=== PATIENT | male | born 1960 | race Asian ===

== ENCOUNTER 2019-07-19 09:11 | Inpatient (IN) | payer OTHER ==
[~2019-07-19] VITALS: Ht 167.6 cm; Wt 65.4 kg
[2019-07-19] VITALS (7 sets, daily range): BP systolic 122–142; BP diastolic 59–79
[2019-07-19] MEDS ORDERED: OMEP20 PO (09:27)
[2019-07-19] MEDS ORDERED: COLC0.6T76 PO (09:27)
[2019-07-19] MEDS ORDERED: LevETIRAcetam 1,000 MG in DEXTROSE 5%-WATER 100 ML IV ONE (09:30)
[2019-07-19] MEDS ORDERED: SODIUM CHLORIDE 0.9% 1,000 ML IV ONE (09:30)
[2019-07-19 09:44] LABS: BASOPHILS % (AUTO) 0.7 % (0.0-2.0); EOSINOPHILS % (AUTO) 0.9 % (1.0-6.0); HEMATOCRIT 42.4 % (41-53); HEMOGLOBIN 13.3 g/dL (13.5-17.5); LYMPHOCYTES # (AUTO) 2.5 K/uL (1.0-4.8); LYMPHOCYTES % (AUTO) 55.3 % (22.0-44.0); MEAN CORPUSCULAR HEMOGLOBIN 26.9 pg (26.0-34.0); MEAN CORPUSCULAR HGB CONC 31.4 G/dL (31.0-37.0); MEAN CORPUSCULAR VOLUME 86 fL (80-100); MONOCYTES # (AUTO) 0.3 K/uL (0.1-1.0); MONOCYTES % (AUTO) 6.9 % (2.0-9.0); NEUTROPHILS # (AUTO) 1.6 K/uL (1.8-7.7); NEUTROPHILS % (AUTO) 36.2 % (40.0-70.0); PLATELET COUNT (AUTO) 234 K/uL (150-450); RED BLOOD CELL COUNT(AUTO) 4.96 MIL/uL (4.50-5.90); RED CELL DISTRIBUTION WIDTH 14.8 % (11.5-14.5)
[2019-07-19] MEDS: NiCARDipine HCL 25 MG in DEXTROSE 5%-WATER 240 ML IV PRN ×2 (09:50→18:32)
[2019-07-19 09:52] LABS: ANION GAP 12 mmol/L (8-16); CALCIUM, TOTAL 8.8 mg/dL (8.8-10.5); CARBON DIOXIDE 25 mmol/L (22-29); CHLORIDE 102 mmol/L (98-107); GLOMERULAR FILTR. RATE CALC > 60 mL/min (>60); GLUCOSE,RANDOM 140 mg/dL (70-110); POTASSIUM 3.5 mmol/L (3.5-5.1); SODIUM SERUM 139 mmol/L (136-145); UREA NITROGEN, BLOOD 13 mg/dL (7-18)
[2019-07-19 09:59] LABS: ALANINE AMINOTRANSFERASE 24 U/L (12-78); ALBUMIN 3.9 g/dL (3.4-5.0); ALKALINE PHOSPHATASE 52 U/L (46-116); ASPARTATE AMINOTRANSFERASE 32 U/L (15-37); BILIRUBIN,TOTAL 0.6 mg/dL (0.1-1.0); TOTAL PROTEIN, SERUM 7.2 g/dL (6.4-8.2)
[2019-07-19 10:12] LABS: APPEARANCE,URINE CLEAR (CLEAR); BILIRUBIN,URINE NEGATIVE (NEGATIVE); GLUCOSE, URINE (UA) NEGATIVE (NEGATIVE); KETONES,URINE NEGATIVE (NEGATIVE); LEUKOCYTE ESTERASE ,URINE NEGATIVE (NEGATIVE); NITRATE,URINE NEGATIVE (NEGATIVE); OCCULT BLOOD,URINE NEGATIVE (NEGATIVE); PROTEIN,URINE NEGATIVE (NEGATIVE); UROBILINOGEN,URINE 0.2 mg/dL (<=1.0)
[2019-07-19 10:18] LABS: AMPHET/METH SCREEN,URINE NEGATIVE (NEGATIVE); BARBITURATE SCREEN, URINE NEGATIVE (NEGATIVE); BENZODIAZEPINES SCREEN,URINE NEGATIVE (NEGATIVE); CANNABINOID SCREEN,URINE NEGATIVE (NEGATIVE); COCAINE SCREEN,URINE NEGATIVE (NEGATIVE); METHADONE SCREEN, URINE NEGATIVE (NEGATIVE); OPIATE SCREEN,URINE NEGATIVE (NEGATIVE)
[2019-07-19 10:19] LABS: PHENCYCLIDINE SCREEN,URINE NEGATIVE (NEGATIVE)
[2019-07-19 10:28] LABS: BACTERIA,URINE None Seen /HPF (None Seen); RBC,URINE None Seen /HPF (0-2); SQUAMOUS EPITHELIAL CELL,UR Rare /LPF (None Seen); WBC,URINE None Seen /HPF (0-5)
[2019-07-19] MEDS ORDERED: DILTIAZEM HCL 125 MG in DEXTROSE 5%-WATER 100 ML IV PRN (10:29)
[2019-07-19] MEDS ORDERED: MAGNESIUM HYDROXIDE SUSPENSION 30 ML UDCUP PO PRN (10:30)
[2019-07-19] MEDS ORDERED: HYDROCODONE/ACETAMINOPHEN 5-325 MG TABLET PO PRN (10:30)
[2019-07-19] MEDS ORDERED: ZOLPIDEM TARTRATE 5 MG TABLET PO PRN (10:30)
[2019-07-19] MEDS ORDERED: ACETAMINOPHEN 325 MG TABLET PO PRN (10:30)
[2019-07-19] MEDS ORDERED: ONDANSETRON HCL 4 MG/2 ML VIAL IVP PRN (10:30)
[2019-07-19] MEDS ORDERED: MORPHINE SULFATE 2 MG/ML SYRINGE IVP PRN (10:30)
[2019-07-19] MEDS ORDERED: BISACODYL 10 MG RECTAL RECTAL SUPPOSITORY PR PRN (10:30)
[2019-07-19] MEDS ORDERED: MANNITOL 25%-12.5 GM/50 ML VIAL IVP ONE (18:30)
[2019-07-19] MEDS: SODIUM CHLORIDE 3% 500 ML IV SCH (18:30)
[2019-07-19 19:14] LABS: SODIUM,URINE RANDOM 132 mmol/l (20-110)
[2019-07-19 19:19] LABS: OSMOLALITY,URINE 538 mOS/kg (50-1200)
[2019-07-19] MEDS: DOCUSATE SODIUM 100 MG CAPSULE PO SCH (21:00)
[2019-07-19] MEDS ORDERED: SODIUM CHLORIDE 0.9% 250 ML IV ONE (21:57)
[2019-07-19] MEDS ORDERED: LevETIRAcetam 750 MG in DEXTROSE 5%-WATER 100 ML IV SCH (22:00)
[2019-07-20] VITALS (10 sets, daily range): BP systolic 134–153; BP diastolic 69–94
[2019-07-20] MEDS: MANNITOL 25%-12.5 GM/50 ML VIAL IVP SCH ×2 (01:30→06:05)
[2019-07-20 08:08] LABS: SODIUM,URINE RANDOM 76 mmol/l (20-110)
[2019-07-20 08:17] LABS: OSMOLALITY,URINE 669 mOS/kg (50-1200)
[2019-07-20 08:24] LABS: ANION GAP 10 mmol/L (8-16); CARBON DIOXIDE 23 mmol/L (22-29); CHLORIDE 105 mmol/L (98-107); CREATININE 0.91 mg/dL (0.60-1.30); GLOMERULAR FILTR. RATE CALC > 60 mL/min (>60); GLUCOSE,RANDOM 104 mg/dL (70-110); POTASSIUM 4.2 mmol/L (3.5-5.1); SODIUM SERUM 138 mmol/L (136-145); UREA NITROGEN, BLOOD 9 mg/dL (7-18)
[2019-07-20 08:58] LABS: BASOPHILS % (AUTO) 0.2 % (0.0-2.0); EOSINOPHILS % (AUTO) 0.1 % (1.0-6.0); HEMATOCRIT 44.4 % (41-53); HEMOGLOBIN 14.1 g/dL (13.5-17.5); LYMPHOCYTES # (AUTO) 1.1 K/uL (1.0-4.8); LYMPHOCYTES % (AUTO) 19.8 % (22.0-44.0); MEAN CORPUSCULAR HEMOGLOBIN 27.4 pg (26.0-34.0); MEAN CORPUSCULAR HGB CONC 31.8 G/dL (31.0-37.0); MEAN CORPUSCULAR VOLUME 86 fL (80-100); MONOCYTES # (AUTO) 0.4 K/uL (0.1-1.0); MONOCYTES % (AUTO) 7.1 % (2.0-9.0); NEUTROPHILS # (AUTO) 3.9 K/uL (1.8-7.7); NEUTROPHILS % (AUTO) 72.8 % (40.0-70.0); PLATELET COUNT (AUTO) 237 K/uL (150-450); RED BLOOD CELL COUNT(AUTO) 5.17 MIL/uL (4.50-5.90); RED CELL DISTRIBUTION WIDTH 14.8 % (11.5-14.5)
[2019-07-20] MEDS: DOCUSATE SODIUM 100 MG CAPSULE PO SCH (09:00)
[2019-07-20] MEDS ORDERED: PANTOPRAZOLE SODIUM 40 MG DR TABLET PO SCH (09:00)
[2019-07-20] MEDS: SODIUM CHLORIDE 3% 500 ML IV SCH (09:17)
[2019-07-20] MEDS: NiCARDipine HCL 25 MG in DEXTROSE 5%-WATER 240 ML IV PRN (15:13)
== END 2019-07-20 16:20 | disposition short-term general hospital (02) | DRG 64 ==
LOC: EMS 09:13 → ICU 16:36
PROVIDERS: ADMIT Internal Medicine; ATTEND Internal Medicine
DX: I61.0 Nontraumatic intracerebral hemorrhage in hemisphere, subcortical (principal); G93.5 Compression of brain; G81.94 Hemiplegia, unspecified affecting left nondominant side; G93.40 Encephalopathy, unspecified; I16.1 Hypertensive emergency; R47.81 Slurred speech; E78.5 Hyperlipidemia, unspecified; E78.00 Pure hypercholesterolemia, unspecified; I10 Essential (primary) hypertension; R29.810 Facial weakness; M10.9 Gout, unspecified; K21.9 Gastro-esophageal reflux disease without esophagitis; Z88.6 Allergy status to analgesic agent; Z79.899 Other long term (current) drug therapy
CPT/HCPCS: 70450; 83735; 83935; 84295; 84300; 87081; 93005; 99291; G0378; J0712; J2150; J3490; J7030; J7050; J7060

== ENCOUNTER 2019-08-01 13:20 | Inpatient (IN) | payer OTHER ==
[2019-08-01] VITALS (11 sets, daily range): BP systolic 97–140; BP diastolic 50–73
[~2019-08-01 13:20] MED LIST: COLC0.6T73 PO; OMEP20 PO
[2019-08-01] MEDS ORDERED: ZOLPIDEM TARTRATE 5 MG TABLET PO PRN (15:00)
[2019-08-01] MEDS ORDERED: MORPHINE SULFATE 2 MG/ML SYRINGE IVP PRN (15:00)
[2019-08-01] MEDS ORDERED: MAGNESIUM HYDROXIDE SUSPENSION 30 ML UDCUP PO PRN (15:00)
[2019-08-01] MEDS ORDERED: ONDANSETRON HCL 4 MG/2 ML VIAL IVP PRN (15:00)
[2019-08-01] MEDS ORDERED: BISACODYL 10 MG RECTAL RECTAL SUPPOSITORY PR PRN (15:00)
[2019-08-01] MEDS ORDERED: MANNITOL 20%-100 GM/500 ML 500 ML IV ONE (15:15)
[2019-08-01 15:28] LABS: BASOPHILS % (AUTO) 0.2 % (0.0-2.0); EOSINOPHILS % (AUTO) 0.4 % (1.0-6.0); HEMATOCRIT 42.4 % (41-53); HEMOGLOBIN 13.9 g/dL (13.5-17.5); LYMPHOCYTES # (AUTO) 1.5 K/uL (1.0-4.8); LYMPHOCYTES % (AUTO) 17.1 % (22.0-44.0); MEAN CORPUSCULAR HEMOGLOBIN 27.5 pg (26.0-34.0); MEAN CORPUSCULAR HGB CONC 32.8 G/dL (31.0-37.0); MEAN CORPUSCULAR VOLUME 84 fL (80-100); MONOCYTES # (AUTO) 0.5 K/uL (0.1-1.0); MONOCYTES % (AUTO) 6.1 % (2.0-9.0); NEUTROPHILS # (AUTO) 6.6 K/uL (1.8-7.7); NEUTROPHILS % (AUTO) 76.2 % (40.0-70.0); RED BLOOD CELL COUNT(AUTO) 5.05 MIL/uL (4.50-5.90)
[2019-08-01 15:31] LABS: PLATELET COUNT (AUTO) 290 K/uL (150-450)
[2019-08-01 15:52] LABS: ALANINE AMINOTRANSFERASE 121 U/L (12-78); ALBUMIN 3.5 g/dL (3.4-5.0); ALKALINE PHOSPHATASE 86 U/L (46-116); ANION GAP 7 mmol/L (8-16); ASPARTATE AMINOTRANSFERASE 70 U/L (15-37); BILIRUBIN,TOTAL 0.5 mg/dL (0.1-1.0); CALCIUM, TOTAL 9.1 mg/dL (8.8-10.5); CARBON DIOXIDE 27 mmol/L (22-29); CHLORIDE 101 mmol/L (98-107); CHOL/HDL RATIO 3.4 (4.2-7.3); CHOLESTEROL 138 mg/dL (131-200); CREATININE 0.87 mg/dL (0.60-1.30); GLOMERULAR FILTR. RATE CALC > 60 mL/min (>60); GLUCOSE,RANDOM 118 mg/dL (70-110); HDL CHOLESTEROL 41 mg/dL (40-60); LDL CHOL (CALC.) 83 mg/dL (0-130); POTASSIUM 4.5 mmol/L (3.5-5.1); SODIUM SERUM 135 mmol/L (136-145); TOTAL PROTEIN, SERUM 7.8 g/dL (6.4-8.2); TRIGLYCERIDES 72 mg/dL (15-150)
[2019-08-01] MEDS ORDERED: BACITRACIN 28.4 GM OINTMENT TP ONE (16:03)
[2019-08-01] MEDS ORDERED: SODIUM CHLORIDE 0.9% 10 ML ONE (16:04)
[2019-08-01] MEDS ORDERED: THROMBIN, BOVINE 20000 UNITS/VIAL POWDER TP ONE (16:04)
[2019-08-01] MEDS ORDERED: SODIUM CHLORIDE 0.9% 100 ML ONE (16:04)
[2019-08-01] MEDS ORDERED: SODIUM CHLORIDE 0.9% 1,000 ML IV ONE (16:04)
[2019-08-01] MEDS ORDERED: GELATIN SPONGE,ABSORBABLE 100 MM TP ONE (16:04)
[2019-08-01] MEDS ORDERED: BACITRACIN 50,000 UNITS/VIAL ONE (16:04)
[2019-08-01] MEDS ORDERED: LIDOCAINE 1%/EPI 1:200,000/PF 10 ML VIAL ONE ×2 (16:04→16:38)
[2019-08-01] MEDS ORDERED: VANCOMYCIN HCL 1 GM/VIAL ONE (16:04)
[2019-08-01 16:18] LABS: UREA NITROGEN, BLOOD 24 mg/dL (7-18)
[2019-08-01] MEDS ORDERED: SUGAMMADEX SODIUM 200 MG/2 ML VIAL IVP ONE (18:56)
[2019-08-01] MEDS: PROPOFOL 1000 MG/ISO-OSM 100 ML IV PRN (20:30)
[2019-08-01] MEDS: ATORVASTATIN CALCIUM 40 MG TABLET PO SCH (21:50)
[2019-08-02] VITALS: BP 122/69
[2019-08-02 00:11] LABS: APPEARANCE,URINE CLEAR (CLEAR); BILIRUBIN,URINE NEGATIVE (NEGATIVE); GLUCOSE, URINE (UA) NEGATIVE (NEGATIVE); KETONES,URINE NEGATIVE (NEGATIVE); LEUKOCYTE ESTERASE ,URINE NEGATIVE (NEGATIVE); NITRATE,URINE NEGATIVE (NEGATIVE); OCCULT BLOOD,URINE TRACE (NEGATIVE); PROTEIN,URINE NEGATIVE (NEGATIVE); UROBILINOGEN,URINE 0.2 mg/dL (<=1.0)
[2019-08-02 00:23] LABS: BACTERIA,URINE None Seen /HPF (None Seen); SQUAMOUS EPITHELIAL CELL,UR Rare /LPF (None Seen); WBC,URINE 0-2 /HPF (0-5)
[2019-08-02] MEDS: ACETAMINOPHEN 325 MG TABLET PO PRN ×2 (01:31→11:26)
[2019-08-02] MEDS ORDERED: SODIUM CHLORIDE 0.9% 500 ML IV ONE (01:40)
[2019-08-02 04:00] VITALS: BP 107/57
[2019-08-02] MEDS: PROPOFOL 1000 MG/ISO-OSM 100 ML IV PRN ×2 (05:33→21:21)
[2019-08-02] MEDS ORDERED: NEOSTIGMINE METHYLSULFATE 1 MG/ML 10 ML VIAL IVP ONE (06:20)
[2019-08-02] MEDS ORDERED: LIDOCAINE/PF 2% 5 ML VIAL IM ONE (06:20)
[2019-08-02] MEDS ORDERED: FentaNYL CITRATE-PF 100 MCG/2 ML VIAL IVP ONE (06:20)
[2019-08-02] MEDS ORDERED: PHENYLEPHRINE HCL 10 MG/ML VIAL IVP ONE (06:20)
[2019-08-02] MEDS ORDERED: MIDAZOLAM HCL 2 MG/2 ML VIAL IVP ONE (06:20)
[2019-08-02] MEDS ORDERED: PROPOFOL 1% 20 ML VIAL IVP ONE (06:20)
[2019-08-02] MEDS ORDERED: METOCLOPRAMIDE HCL 5 MG/ML 2 ML VIAL IVP ONE (06:20)
[2019-08-02] MEDS ORDERED: DEXAMETHASONE SOD PHOS 4 MG/ML VIAL IVP ONE (06:20)
[2019-08-02] MEDS ORDERED: ONDANSETRON HCL 4 MG/2 ML VIAL IVP ONE (06:20)
[2019-08-02] MEDS ORDERED: ROCURONIUM BROMIDE 10 MG/ML 5 ML VIAL IVP ONE (06:20)
[2019-08-02 08:00] VITALS: BP 138/72
[2019-08-02] MEDS: PANTOPRAZOLE SODIUM 40 MG DR TABLET PO SCH (08:29)
[2019-08-02] MEDS: AmLODIPine BESYLATE 10 MG TABLET PO SCH (08:29)
[2019-08-02] MEDS: LISINOPRIL 20 MG TABLET PO SCH (08:29)
[2019-08-02 11:05] LABS: BASOPHILS % (AUTO) 0.1 % (0.0-2.0); EOSINOPHILS % (AUTO) 0 % (1.0-6.0); HEMATOCRIT 32.6 % (41-53); HEMOGLOBIN 10.6 g/dL (13.5-17.5); LYMPHOCYTES # (AUTO) 1.4 K/uL (1.0-4.8); LYMPHOCYTES % (AUTO) 11.5 % (22.0-44.0); MEAN CORPUSCULAR HEMOGLOBIN 27.4 pg (26.0-34.0); MEAN CORPUSCULAR HGB CONC 32.5 G/dL (31.0-37.0); MEAN CORPUSCULAR VOLUME 84 fL (80-100); MONOCYTES # (AUTO) 1.1 K/uL (0.1-1.0); MONOCYTES % (AUTO) 8.8 % (2.0-9.0); NEUTROPHILS # (AUTO) 9.8 K/uL (1.8-7.7); NEUTROPHILS % (AUTO) 79.6 % (40.0-70.0); PLATELET COUNT (AUTO) 318 K/uL (150-450); RED BLOOD CELL COUNT(AUTO) 3.87 MIL/uL (4.50-5.90)
[2019-08-02 11:17] LABS: CALCIUM, TOTAL 8.9 mg/dL (8.8-10.5); CREATININE 1.34 mg/dL (0.60-1.30); POTASSIUM 4.6 mmol/L (3.5-5.1)
[2019-08-02 11:24] LABS: ALBUMIN 3.1 g/dL (3.4-5.0); BILIRUBIN,TOTAL 0.5 mg/dL (0.1-1.0); TOTAL PROTEIN, SERUM 6.8 g/dL (6.4-8.2)
[2019-08-02 12:00] VITALS: BP 114/59
[2019-08-02] MEDS ORDERED: ACETAMINOPHEN 325 MG/ISO-OSM 32.5 ML IV SCH (18:45)
[2019-08-02] MEDS: ACETAMINOPHEN 1000 MG/ISO-OSM 100 ML IV SCH (19:37)
[2019-08-02 20:00] VITALS: BP 107/69
[2019-08-02] MEDS: ATORVASTATIN CALCIUM 40 MG TABLET PO SCH (20:43)
[2019-08-03] VITALS: BP 105/66
[2019-08-03] MEDS: ACETAMINOPHEN 1000 MG/ISO-OSM 100 ML IV SCH ×3 (01:38→12:56)
[2019-08-03 04:00] VITALS: BP 110/72
[2019-08-03] MEDS: PROPOFOL 1000 MG/ISO-OSM 100 ML IV PRN ×2 (05:04→18:06)
[2019-08-03 05:32] LABS: BASOPHILS % (AUTO) 0.1 % (0.0-2.0); EOSINOPHILS % (AUTO) 0 % (1.0-6.0); HEMATOCRIT 30.2 % (41-53); HEMOGLOBIN 9.8 g/dL (13.5-17.5); LYMPHOCYTES # (AUTO) 1.6 K/uL (1.0-4.8); LYMPHOCYTES % (AUTO) 12.5 % (22.0-44.0); MEAN CORPUSCULAR HEMOGLOBIN 27.5 pg (26.0-34.0); MEAN CORPUSCULAR HGB CONC 32.3 G/dL (31.0-37.0); MEAN CORPUSCULAR VOLUME 85 fL (80-100); MONOCYTES # (AUTO) 1.1 K/uL (0.1-1.0); MONOCYTES % (AUTO) 8.7 % (2.0-9.0); NEUTROPHILS % (AUTO) 78.7 % (40.0-70.0); PLATELET COUNT (AUTO) 313 K/uL (150-450); RED BLOOD CELL COUNT(AUTO) 3.55 MIL/uL (4.50-5.90); RED CELL DISTRIBUTION WIDTH 14.1 % (11.5-14.5)
[2019-08-03 05:40] LABS: CALCIUM, TOTAL 8.9 mg/dL (8.8-10.5); CREATININE 1.8 mg/dL (0.60-1.30)
[2019-08-03 08:00] VITALS: BP 108/71
[2019-08-03] MEDS: PANTOPRAZOLE SODIUM 40 MG DR TABLET PO SCH (08:03)
[2019-08-03] MEDS: LISINOPRIL 20 MG TABLET PO SCH (08:03)
[2019-08-03] MEDS: AmLODIPine BESYLATE 10 MG TABLET PO SCH (08:03)
[2019-08-03 12:00] VITALS: BP 108/71
[2019-08-03 15:38] LABS: ABG A-A DIFF O2 51.1 mmHg (10-20.0); ABG BASE EXCESS 0.6 mmol/L (-2.0-3.0); ABG CARBOXYHEMOGLOBIN 0.3 % (0.0-1.5); ABG HCO3 25.2 mmol/L (22.0-26.0); ABG METHEMOGLOBIN 0.3 % (0.0-1.5); ABG OXYGEN CONTENT 13.8 mL/dL (15.0-23.0); ABG OXYGEN SATURATION 98.7 % (95.0-98.0); ABG OXYHEMOGLOBIN 98.1 % (94.0-100.0); ABG PCO2 38 mmHg (35-45); ABG PH 7.435 (7.35-7.450); ABG TOTAL HEMOGLOBIN 9.8 G/dL (12.0-18.0); PO2, ARTERIAL BG 154.4 mmHg (84.0-92.0); SITE, BLOOD GAS RT RADIAL; SOURCE, BLOOD GAS ARTERIAL; TEMPERATURE, FAHRENHEIT, BG 98.6 FAHREN (96.0-98.6)
[2019-08-03 15:39] LABS: O2 DEVICE,BLOOD GAS VENTILATOR (ROOM AIR); PEEP,BG 0 cm H2O; PRESSURE SUPPORT, BG 8 cm H2O; SPONTANEOUS VT, BG 437 ml; VENT MODE, BG SPONTANEOUS (ROOM AIR)
[2019-08-03 16:00] VITALS: BP 110/68
[2019-08-03 20:00] VITALS: BP 103/64
[2019-08-03] MEDS: ATORVASTATIN CALCIUM 40 MG TABLET PO SCH (21:01)
[2019-08-04] VITALS: BP 106/72
[2019-08-04] MEDS: ACETAMINOPHEN 325 MG TABLET PO PRN ×3 (00:08→12:49)
[2019-08-04 04:00] VITALS: BP 81/52
[2019-08-04 08:00] VITALS: BP 99/68
[2019-08-04] MEDS: AmLODIPine BESYLATE 10 MG TABLET PO SCH (09:00)
[2019-08-04] MEDS: LISINOPRIL 20 MG TABLET PO SCH (09:00)
[2019-08-04] MEDS: PANTOPRAZOLE SODIUM 40 MG DR TABLET PO SCH (09:00)
[2019-08-04 11:34] LABS: ABG A-A DIFF O2 45.7 mmHg (10-20.0); ABG BASE EXCESS 1.3 mmol/L (-2.0-3.0); ABG CARBOXYHEMOGLOBIN 0.3 % (0.0-1.5); ABG HCO3 25.7 mmol/L (22.0-26.0); ABG METHEMOGLOBIN 0.3 % (0.0-1.5); ABG OXYGEN CONTENT 12.6 mL/dL (15.0-23.0); ABG OXYGEN SATURATION 98.7 % (95.0-98.0); ABG OXYHEMOGLOBIN 98.1 % (94.0-100.0); ABG PCO2 39 mmHg (35-45); ABG PH 7.438 (7.35-7.450); ABG TOTAL HEMOGLOBIN 8.9 G/dL (12.0-18.0); PO2, ARTERIAL BG 158.3 mmHg (84.0-92.0); SOURCE, BLOOD GAS ARTERIAL
[2019-08-04 11:35] LABS: BASOPHILS % (AUTO) 0.1 % (0.0-2.0); EOSINOPHILS % (AUTO) 0.1 % (1.0-6.0); HEMATOCRIT 27.2 % (41-53); HEMOGLOBIN 8.8 g/dL (13.5-17.5); LYMPHOCYTES % (AUTO) 7.5 % (22.0-44.0); MEAN CORPUSCULAR HEMOGLOBIN 27.3 pg (26.0-34.0); MEAN CORPUSCULAR HGB CONC 32.3 G/dL (31.0-37.0); MEAN CORPUSCULAR VOLUME 85 fL (80-100); MONOCYTES # (AUTO) 1.1 K/uL (0.1-1.0); MONOCYTES % (AUTO) 7.9 % (2.0-9.0); NEUTROPHILS # (AUTO) 11.7 K/uL (1.8-7.7); NEUTROPHILS % (AUTO) 84.4 % (40.0-70.0); PLATELET COUNT (AUTO) 333 K/uL (150-450); RED BLOOD CELL COUNT(AUTO) 3.22 MIL/uL (4.50-5.90); RED CELL DISTRIBUTION WIDTH 14.3 % (11.5-14.5)
[2019-08-04 11:36] LABS: CALCIUM, TOTAL 8.7 mg/dL (8.8-10.5); CREATININE 1.26 mg/dL (0.60-1.30); POTASSIUM 4.2 mmol/L (3.5-5.1)
[2019-08-04 11:36] LABS: CPAP, BG 0 cm H2O; O2 DEVICE,BLOOD GAS VENTILATOR (ROOM AIR); PRESSURE SUPPORT, BG 8 cm H2O; SITE, BLOOD GAS RT RADIAL; SPONTANEOUS VT, BG 500 ml; VENT MODE, BG CPAP (ROOM AIR)
[2019-08-04 12:00] VITALS: BP 104/68
[2019-08-04] MEDS: PROPOFOL 1000 MG/ISO-OSM 100 ML IV PRN ×2 (12:27→23:09)
[2019-08-04] MEDS ORDERED: SODIUM CHLORIDE 0.9% 100 ML ONE (14:58)
[2019-08-04] MEDS ORDERED: IOVERSOL 350 MG/ML 150 ML VIAL ONE (14:58)
[2019-08-04] MEDS ORDERED: VANCOMYCIN HCL 1 GM/D5% WATER 200 ML IV ONE (15:00)
[2019-08-04] MEDS ORDERED: SODIUM CHLORIDE 0.9% 250 ML IV ONE ×2 (15:13→23:30)
[2019-08-04 16:00] VITALS: BP 100/62
[2019-08-04] MEDS ORDERED: CefTRIAXone SODIUM 2 GM in DEXTROSE 5%-WATER 50 ML IV SCH (16:00)
[2019-08-04] MEDS: ACETAMINOPHEN 1000 MG/ISO-OSM 100 ML IV SCH ×2 (17:28→23:08)
[2019-08-04 17:54] LABS: URIC ACID 6.3 mg/dL (2.6-7.2)
[2019-08-04 20:00] VITALS: BP 125/68
[2019-08-04] MEDS: ATORVASTATIN CALCIUM 40 MG TABLET PO SCH (20:49)
[2019-08-04 22:01] LABS: APPEARANCE,URINE CLEAR (CLEAR); BILIRUBIN,URINE NEGATIVE (NEGATIVE); GLUCOSE, URINE (UA) NEGATIVE (NEGATIVE); KETONES,URINE NEGATIVE (NEGATIVE); LEUKOCYTE ESTERASE ,URINE NEGATIVE (NEGATIVE); NITRATE,URINE NEGATIVE (NEGATIVE); OCCULT BLOOD,URINE TRACE (NEGATIVE); PH,URINE 5.5 (5.0-8.0); PROTEIN,URINE NEGATIVE (NEGATIVE); UROBILINOGEN,URINE 0.2 mg/dL (<=1.0)
[2019-08-04 22:13] LABS: RBC,URINE 0-2 /HPF (0-2); WBC,URINE 0-2 /HPF (0-5)
[2019-08-04 22:14] LABS: BACTERIA,URINE Rare /HPF (None Seen); SQUAMOUS EPITHELIAL CELL,UR Rare /LPF (None Seen)
[2019-08-04] MEDS: MetroNIDAZOLE 500 MG/NACL 100 ML IV SCH (23:50)
[2019-08-05] VITALS: BP 94/56
[2019-08-05] MEDS: CefTAZidime PENTAHYDRATE 2 GM in DEXTROSE 5%-WATER 50 ML IV SCH ×3 (03:33→19:54)
[2019-08-05 04:00] VITALS: BP 132/80
[2019-08-05 04:55] LABS: BASOPHILS % (AUTO) 0.2 % (0.0-2.0); EOSINOPHILS % (AUTO) 0.2 % (1.0-6.0); HEMATOCRIT 24.2 % (41-53); HEMOGLOBIN 7.9 g/dL (13.5-17.5); LYMPHOCYTES # (AUTO) 1.4 K/uL (1.0-4.8); LYMPHOCYTES % (AUTO) 10.1 % (22.0-44.0); MEAN CORPUSCULAR HEMOGLOBIN 27.5 pg (26.0-34.0); MEAN CORPUSCULAR HGB CONC 32.7 G/dL (31.0-37.0); MEAN CORPUSCULAR VOLUME 84 fL (80-100); MONOCYTES # (AUTO) 0.9 K/uL (0.1-1.0); MONOCYTES % (AUTO) 6.2 % (2.0-9.0); NEUTROPHILS # (AUTO) 11.5 K/uL (1.8-7.7); NEUTROPHILS % (AUTO) 83.3 % (40.0-70.0); PLATELET COUNT (AUTO) 343 K/uL (150-450); RED BLOOD CELL COUNT(AUTO) 2.88 MIL/uL (4.50-5.90); RED CELL DISTRIBUTION WIDTH 14.3 % (11.5-14.5)
[2019-08-05 04:58] LABS: ANION GAP 9 mmol/L (8-16); CALCIUM, TOTAL 8.5 mg/dL (8.8-10.5); CARBON DIOXIDE 30 mmol/L (22-29); CHLORIDE 105 mmol/L (98-107); CREATININE 1.06 mg/dL (0.60-1.30); GLOMERULAR FILTR. RATE CALC > 60 mL/min (>60); GLUCOSE,RANDOM 171 mg/dL (70-110); POTASSIUM 4.1 mmol/L (3.5-5.1); SODIUM SERUM 144 mmol/L (136-145); UREA NITROGEN, BLOOD 49 mg/dL (7-18)
[2019-08-05] MEDS: ACETAMINOPHEN 1000 MG/ISO-OSM 100 ML IV SCH ×2 (06:14→11:00)
[2019-08-05 08:00] VITALS: BP 144/64
[2019-08-05] MEDS: AmLODIPine BESYLATE 10 MG TABLET PO SCH (09:00)
[2019-08-05] MEDS: PANTOPRAZOLE SODIUM 40 MG DR TABLET PO SCH (09:00)
[2019-08-05] MEDS: LISINOPRIL 20 MG TABLET PO SCH (09:00)
[2019-08-05] MEDS: MetroNIDAZOLE 500 MG/NACL 100 ML IV SCH ×2 (09:05→16:44)
[2019-08-05] MEDS ORDERED: VANCOMYCIN HCL 500 MG in DEXTROSE 5%-WATER 100 ML IV ONE (11:00)
[2019-08-05] MEDS ORDERED: VANCOMYCIN HCL 1 GM/D5% WATER 200 ML IV ONE (11:00)
[2019-08-05 12:00] VITALS: BP 101/60
[2019-08-05 15:24] LABS: ABG A-A DIFF O2 41.5 mmHg (10-20.0); ABG BASE EXCESS 6.1 mmol/L (-2.0-3.0); ABG CARBOXYHEMOGLOBIN 0.8 % (0.0-1.5); ABG HCO3 29.6 mmol/L (22.0-26.0); ABG METHEMOGLOBIN 0.3 % (0.0-1.5); ABG OXYGEN CONTENT 11.3 mL/dL (15.0-23.0); ABG OXYGEN SATURATION 99.2 % (95.0-98.0); ABG OXYHEMOGLOBIN 98.1 % (94.0-100.0); ABG PCO2 44 mmHg (35-45); ABG PH 7.456 (7.35-7.450); PO2, ARTERIAL BG 156.8 mmHg (84.0-92.0); SOURCE, BLOOD GAS ARTERIAL; TEMPERATURE, FAHRENHEIT, BG 99.9 FAHREN (96.0-98.6)
[2019-08-05 15:25] LABS: ABG TOTAL HEMOGLOBIN 7.9 G/dL (12.0-18.0); SITE, BLOOD GAS RT RADIAL
[2019-08-05 15:26] LABS: O2 DEVICE,BLOOD GAS VENTILATOR (ROOM AIR); PEEP,BG 0 cm H2O; PRESSURE SUPPORT, BG 8 cm H2O; VENT MODE, BG Press. Support Vent. (ROOM AIR)
[2019-08-05 16:00] VITALS: BP 144/62
[2019-08-05 20:00] VITALS: BP 145/79
[2019-08-05] MEDS: VANCOMYCIN HCL 1 GM/D5% WATER 200 ML IV SCH (20:34)
[2019-08-05] MEDS: ATORVASTATIN CALCIUM 40 MG TABLET PO SCH (21:03)
[2019-08-06] VITALS: BP 139/72
[2019-08-06] MEDS ORDERED: SODIUM CHLORIDE 0.9% 250 ML IV ONE (00:13)
[2019-08-06] MEDS: MetroNIDAZOLE 500 MG/NACL 100 ML IV SCH ×3 (00:15→15:51)
[2019-08-06 04:00] VITALS: BP 162/104
[2019-08-06] MEDS: CefTAZidime PENTAHYDRATE 2 GM in DEXTROSE 5%-WATER 50 ML IV SCH ×3 (04:15→21:37)
[2019-08-06 05:10] LABS: BASOPHILS % (AUTO) 0.2 % (0.0-2.0); EOSINOPHILS % (AUTO) 0.8 % (1.0-6.0); HEMATOCRIT 24.4 % (41-53); HEMOGLOBIN 7.8 g/dL (13.5-17.5); LYMPHOCYTES # (AUTO) 1.3 K/uL (1.0-4.8); LYMPHOCYTES % (AUTO) 13.2 % (22.0-44.0); MEAN CORPUSCULAR HEMOGLOBIN 27.5 pg (26.0-34.0); MEAN CORPUSCULAR HGB CONC 32.1 G/dL (31.0-37.0); MEAN CORPUSCULAR VOLUME 85 fL (80-100); MONOCYTES # (AUTO) 0.5 K/uL (0.1-1.0); MONOCYTES % (AUTO) 5.3 % (2.0-9.0); NEUTROPHILS % (AUTO) 80.5 % (40.0-70.0); PLATELET COUNT (AUTO) 371 K/uL (150-450); RED BLOOD CELL COUNT(AUTO) 2.86 MIL/uL (4.50-5.90); RED CELL DISTRIBUTION WIDTH 14.2 % (11.5-14.5)
[2019-08-06 05:17] LABS: ANION GAP 8 mmol/L (8-16); CALCIUM, TOTAL 9.4 mg/dL (8.8-10.5); CARBON DIOXIDE 32 mmol/L (22-29); CHLORIDE 104 mmol/L (98-107); CREATININE 0.84 mg/dL (0.60-1.30); GLOMERULAR FILTR. RATE CALC > 60 mL/min (>60); GLUCOSE,RANDOM 153 mg/dL (70-110); POTASSIUM 4.1 mmol/L (3.5-5.1); SODIUM SERUM 144 mmol/L (136-145); UREA NITROGEN, BLOOD 29 mg/dL (7-18)
[2019-08-06] MEDS: VANCOMYCIN HCL 1 GM/D5% WATER 200 ML IV SCH ×2 (06:32→21:37)
[2019-08-06 08:00] VITALS: BP 155/88
[2019-08-06] MEDS: LISINOPRIL 20 MG TABLET PO SCH (08:59)
[2019-08-06] MEDS: PANTOPRAZOLE SODIUM 40 MG DR TABLET PO SCH (09:01)
[2019-08-06] MEDS: AmLODIPine BESYLATE 10 MG TABLET PO SCH (09:01)
[2019-08-06 12:00] VITALS: BP 150/81
[2019-08-06 16:00] VITALS: BP 149/84
[2019-08-06] MEDS: HYDROCODONE/ACETAMINOPHEN 5-325 MG TABLET PO PRN (16:47)
[2019-08-06 20:00] VITALS: BP 121/72
[2019-08-06] MEDS: ATORVASTATIN CALCIUM 40 MG TABLET PO SCH (21:38)
[2019-08-07] VITALS (7 sets, daily range): BP systolic 130–165; BP diastolic 74–94
[2019-08-07] MEDS: MetroNIDAZOLE 500 MG/NACL 100 ML IV SCH ×4 (00:45→23:43)
[2019-08-07 04:05] LABS: ANION GAP 8 mmol/L (8-16); CALCIUM, TOTAL 9.4 mg/dL (8.8-10.5); CARBON DIOXIDE 29 mmol/L (22-29); CHLORIDE 102 mmol/L (98-107); CREATININE 0.75 mg/dL (0.60-1.30); GLOMERULAR FILTR. RATE CALC > 60 mL/min (>60); GLUCOSE,RANDOM 148 mg/dL (70-110); SODIUM SERUM 139 mmol/L (136-145); UREA NITROGEN, BLOOD 26 mg/dL (7-18); VANCOMYCIN,RANDOM 12.8 mcg/mL (25.0-50.0)
[2019-08-07] MEDS: CefTAZidime PENTAHYDRATE 2 GM in DEXTROSE 5%-WATER 50 ML IV SCH ×3 (05:42→20:06)
[2019-08-07] MEDS: VANCOMYCIN HCL 1 GM/D5% WATER 200 ML IV SCH (06:23)
[2019-08-07] MEDS: AmLODIPine BESYLATE 10 MG TABLET PO SCH (09:44)
[2019-08-07] MEDS: LISINOPRIL 20 MG TABLET PO SCH (09:45)
[2019-08-07] MEDS: PANTOPRAZOLE SODIUM 40 MG DR TABLET PO SCH (09:45)
[2019-08-07] MEDS: VANCOMYCIN HCL 1.25 GM in DEXTROSE 5%-WATER 250 ML IV SCH ×3 (11:40→23:45)
[2019-08-07] MEDS: HYDROCODONE/ACETAMINOPHEN 5-325 MG TABLET PO PRN (11:41)
[2019-08-07] MEDS: ATORVASTATIN CALCIUM 40 MG TABLET PO SCH (20:06)
[2019-08-08] VITALS (7 sets, daily range): BP systolic 104–134; BP diastolic 67–81
[2019-08-08] MEDS: HYDROCODONE/ACETAMINOPHEN 5-325 MG TABLET PO PRN (01:04)
[2019-08-08] MEDS: CefTAZidime PENTAHYDRATE 2 GM in DEXTROSE 5%-WATER 50 ML IV SCH ×3 (03:37→21:03)
[2019-08-08] MEDS: VANCOMYCIN HCL 1.25 GM in DEXTROSE 5%-WATER 250 ML IV SCH (05:29)
[2019-08-08 05:40] LABS: ANION GAP 5 mmol/L (8-16); CALCIUM, TOTAL 8.9 mg/dL (8.8-10.5); CARBON DIOXIDE 27 mmol/L (22-29); CHLORIDE 100 mmol/L (98-107); CREATININE 0.66 mg/dL (0.60-1.30); GLOMERULAR FILTR. RATE CALC > 60 mL/min (>60); GLUCOSE,RANDOM 170 mg/dL (70-110); POTASSIUM 3.9 mmol/L (3.5-5.1); SODIUM SERUM 132 mmol/L (136-145); UREA NITROGEN, BLOOD 22 mg/dL (7-18)
[2019-08-08] MEDS: MetroNIDAZOLE 500 MG/NACL 100 ML IV SCH (08:36)
[2019-08-08] MEDS: LISINOPRIL 20 MG TABLET PO SCH (08:36)
[2019-08-08] MEDS: AmLODIPine BESYLATE 10 MG TABLET PO SCH (08:36)
[2019-08-08] MEDS ORDERED: LANSOPRAZOLE 30 MG SOLUBLE TABLET GT SCH (10:09)
[2019-08-08] MEDS: DOCUSATE SODIUM 100 MG/10 ML LIQUID UDCUP PEG SCH ×2 (11:33→21:47)
[2019-08-08] MEDS: LANSOPRAZOLE 30 MG SOLUBLE TABLET PEG SCH (11:33)
[2019-08-08] MEDS: VANCOMYCIN HCL 1 GM/D5% WATER 200 ML IV SCH ×2 (12:59→18:16)
[2019-08-08] MEDS ORDERED: SODIUM CHLORIDE 0.9% 100 ML ONE (21:17)
[2019-08-08] MEDS: ATORVASTATIN CALCIUM 40 MG TABLET PO SCH (21:47)
[2019-08-09] VITALS: BP 126/68
[2019-08-09] MEDS: VANCOMYCIN HCL 1 GM/D5% WATER 200 ML IV SCH ×4 (00:15→23:44)
[2019-08-09 04:05] VITALS: BP 129/79
[2019-08-09] MEDS: CefTAZidime PENTAHYDRATE 2 GM in DEXTROSE 5%-WATER 50 ML IV SCH ×2 (04:41→12:05)
[2019-08-09 07:25] LABS: BASOPHILS % (AUTO) 0.5 % (0.0-2.0); EOSINOPHILS % (AUTO) 1.3 % (1.0-6.0); HEMATOCRIT 27.3 % (41-53); HEMOGLOBIN 9.1 g/dL (13.5-17.5); LYMPHOCYTES # (AUTO) 1.3 K/uL (1.0-4.8); LYMPHOCYTES % (AUTO) 15.7 % (22.0-44.0); MEAN CORPUSCULAR HEMOGLOBIN 28.1 pg (26.0-34.0); MEAN CORPUSCULAR HGB CONC 33.3 G/dL (31.0-37.0); MEAN CORPUSCULAR VOLUME 85 fL (80-100); MONOCYTES # (AUTO) 0.5 K/uL (0.1-1.0); MONOCYTES % (AUTO) 6.1 % (2.0-9.0); NEUTROPHILS # (AUTO) 6.2 K/uL (1.8-7.7); NEUTROPHILS % (AUTO) 76.4 % (40.0-70.0); PLATELET COUNT (AUTO) 490 K/uL (150-450); RED BLOOD CELL COUNT(AUTO) 3.24 MIL/uL (4.50-5.90); RED CELL DISTRIBUTION WIDTH 14.1 % (11.5-14.5)
[2019-08-09 07:37] LABS: ANION GAP 8 mmol/L (8-16); CALCIUM, TOTAL 9.1 mg/dL (8.8-10.5); CARBON DIOXIDE 27 mmol/L (22-29); CHLORIDE 96 mmol/L (98-107); CREATININE 0.74 mg/dL (0.60-1.30); GLOMERULAR FILTR. RATE CALC > 60 mL/min (>60); GLUCOSE,RANDOM 181 mg/dL (70-110); POTASSIUM 4.3 mmol/L (3.5-5.1); SODIUM SERUM 131 mmol/L (136-145); UREA NITROGEN, BLOOD 15 mg/dL (7-18)
[2019-08-09 07:48] VITALS: BP 114/74
[2019-08-09] MEDS: DOCUSATE SODIUM 100 MG/10 ML LIQUID UDCUP PEG SCH ×2 (09:40→20:43)
[2019-08-09] MEDS: LISINOPRIL 20 MG TABLET PO SCH (09:40)
[2019-08-09] MEDS: LANSOPRAZOLE 30 MG SOLUBLE TABLET PEG SCH (09:40)
[2019-08-09] MEDS: AmLODIPine BESYLATE 10 MG TABLET PO SCH (09:40)
[2019-08-09 11:38] VITALS: BP 115/74
[2019-08-09 15:24] VITALS: BP 124/79
[2019-08-09] MEDS: HYDROCODONE/ACETAMINOPHEN 5-325 MG TABLET PO PRN (18:49)
[2019-08-09] MEDS: CefTRIAXone SODIUM 2 GM in DEXTROSE 5%-WATER 50 ML IV SCH (20:03)
[2019-08-09 20:11] VITALS: BP 114/70
[2019-08-09] MEDS: ATORVASTATIN CALCIUM 40 MG TABLET PO SCH (20:43)
[2019-08-09] MEDS ORDERED: SODIUM CHLORIDE 0.9% 250 ML IV ONE (23:40)
[2019-08-10] VITALS (7 sets, daily range): BP systolic 100–141; BP diastolic 63–85
[2019-08-10] MEDS: VANCOMYCIN HCL 1 GM/D5% WATER 200 ML IV SCH ×2 (06:17→15:16)
[2019-08-10 07:07] LABS: ANION GAP 6 mmol/L (8-16); CALCIUM, TOTAL 8.8 mg/dL (8.8-10.5); CARBON DIOXIDE 28 mmol/L (22-29); CHLORIDE 98 mmol/L (98-107); CREATININE 0.73 mg/dL (0.60-1.30); GLOMERULAR FILTR. RATE CALC > 60 mL/min (>60); GLUCOSE,RANDOM 156 mg/dL (70-110); POTASSIUM 4.2 mmol/L (3.5-5.1); SODIUM SERUM 132 mmol/L (136-145); UREA NITROGEN, BLOOD 18 mg/dL (7-18); VANCOMYCIN,RANDOM 18.3 mcg/mL (25.0-50.0)
[2019-08-10] MEDS: DOCUSATE SODIUM 100 MG/10 ML LIQUID UDCUP PEG SCH ×2 (08:08→20:50)
[2019-08-10] MEDS: LISINOPRIL 20 MG TABLET PO SCH (08:09)
[2019-08-10] MEDS: LANSOPRAZOLE 30 MG SOLUBLE TABLET PEG SCH (08:09)
[2019-08-10] MEDS: AmLODIPine BESYLATE 10 MG TABLET PO SCH (08:09)
[2019-08-10] MEDS ORDERED: BISACODYL 5 MG EC TABLET PO PRN (10:45)
[2019-08-10] MEDS: METOCLOPRAMIDE HCL 5 MG TABLET PO SCH ×3 (11:15→23:37)
[2019-08-10] MEDS: CefTRIAXone SODIUM 2 GM in DEXTROSE 5%-WATER 50 ML IV SCH (20:49)
[2019-08-10] MEDS: ATORVASTATIN CALCIUM 40 MG TABLET PO SCH (20:50)
[2019-08-11 05:22] VITALS: BP 130/86
[2019-08-11 05:38] LABS: BASOPHILS % (AUTO) 0.4 % (0.0-2.0); EOSINOPHILS % (AUTO) 1.1 % (1.0-6.0); HEMOGLOBIN 9.2 g/dL (13.5-17.5); LYMPHOCYTES # (AUTO) 1.6 K/uL (1.0-4.8); LYMPHOCYTES % (AUTO) 15.9 % (22.0-44.0); MEAN CORPUSCULAR HEMOGLOBIN 27.7 pg (26.0-34.0); MEAN CORPUSCULAR HGB CONC 32.7 G/dL (31.0-37.0); MEAN CORPUSCULAR VOLUME 85 fL (80-100); MONOCYTES # (AUTO) 0.6 K/uL (0.1-1.0); MONOCYTES % (AUTO) 5.5 % (2.0-9.0); NEUTROPHILS # (AUTO) 7.9 K/uL (1.8-7.7); NEUTROPHILS % (AUTO) 77.1 % (40.0-70.0); PLATELET COUNT (AUTO) 517 K/uL (150-450); RED BLOOD CELL COUNT(AUTO) 3.31 MIL/uL (4.50-5.90); RED CELL DISTRIBUTION WIDTH 14.1 % (11.5-14.5)
[2019-08-11 05:52] LABS: ALANINE AMINOTRANSFERASE 196 U/L (12-78); ALBUMIN 2.7 g/dL (3.4-5.0); ALKALINE PHOSPHATASE 123 U/L (46-116); ANION GAP 7 mmol/L (8-16); ASPARTATE AMINOTRANSFERASE 108 U/L (15-37); BILIRUBIN,TOTAL 0.4 mg/dL (0.1-1.0); CALCIUM, TOTAL 8.8 mg/dL (8.8-10.5); CARBON DIOXIDE 29 mmol/L (22-29); CHLORIDE 98 mmol/L (98-107); CREATININE 0.76 mg/dL (0.60-1.30); GLOMERULAR FILTR. RATE CALC > 60 mL/min (>60); GLUCOSE,RANDOM 155 mg/dL (70-110); POTASSIUM 4.1 mmol/L (3.5-5.1); SODIUM SERUM 134 mmol/L (136-145); UREA NITROGEN, BLOOD 16 mg/dL (7-18)
[2019-08-11 06:06] LABS: TOTAL PROTEIN, SERUM 7.2 g/dL (6.4-8.2)
[2019-08-11 07:25] VITALS: BP 136/92
[2019-08-11] MEDS: METOCLOPRAMIDE HCL 5 MG TABLET PO SCH (08:00)
[2019-08-11] MEDS: LISINOPRIL 20 MG TABLET PO SCH (08:40)
[2019-08-11] MEDS: AmLODIPine BESYLATE 10 MG TABLET PO SCH (08:40)
[2019-08-11] MEDS: DOCUSATE SODIUM 100 MG/10 ML LIQUID UDCUP PEG SCH ×2 (08:40→20:44)
[2019-08-11] MEDS: LANSOPRAZOLE 30 MG SOLUBLE TABLET PEG SCH (08:40)
[2019-08-11 12:13] VITALS: BP 120/74
[2019-08-11 15:31] VITALS: BP 138/78
[2019-08-11 20:05] VITALS: BP 132/79
[2019-08-11] MEDS: CefTRIAXone SODIUM 2 GM in DEXTROSE 5%-WATER 50 ML IV SCH (20:44)
[2019-08-11] MEDS: ATORVASTATIN CALCIUM 40 MG TABLET PO SCH (20:44)
[2019-08-11 23:43] VITALS: BP 130/75
[2019-08-12 05:05] VITALS: BP 120/68
[2019-08-12 06:49] LABS: ALANINE AMINOTRANSFERASE 180 U/L (12-78); ALBUMIN 2.8 g/dL (3.4-5.0); ALKALINE PHOSPHATASE 100 U/L (46-116); ANION GAP 12 mmol/L (8-16); ASPARTATE AMINOTRANSFERASE 79 U/L (15-37); BILIRUBIN,TOTAL 0.5 mg/dL (0.1-1.0); CALCIUM, TOTAL 9.1 mg/dL (8.8-10.5); CARBON DIOXIDE 26 mmol/L (22-29); CHLORIDE 98 mmol/L (98-107); GLOMERULAR FILTR. RATE CALC > 60 mL/min (>60); GLUCOSE,RANDOM 128 mg/dL (70-110); POTASSIUM 4.4 mmol/L (3.5-5.1); SODIUM SERUM 136 mmol/L (136-145); TOTAL PROTEIN, SERUM 7.2 g/dL (6.4-8.2); UREA NITROGEN, BLOOD 17 mg/dL (7-18)
[2019-08-12 08:40] VITALS: BP 119/78
[2019-08-12] MEDS: DOCUSATE SODIUM 100 MG/10 ML LIQUID UDCUP PEG SCH ×2 (09:00→20:38)
[2019-08-12 11:29] VITALS: BP 127/85
[2019-08-12] MEDS ORDERED: PROPOFOL 1% 20 ML VIAL IVP ONE (12:00)
[2019-08-12] MEDS ORDERED: SODIUM CHLORIDE 0.9% 1,000 ML IV ONE ×2 (13:36→13:45)
[2019-08-12] MEDS ORDERED: MAGNESIUM HYDROXIDE SUSPENSION 30 ML UDCUP PEG PRN (15:30)
[2019-08-12] MEDS ORDERED: BISACODYL 5 MG EC TABLET PEG PRN (15:30)
[2019-08-12] MEDS ORDERED: ZOLPIDEM TARTRATE 5 MG TABLET PEG PRN (15:30)
[2019-08-12] MEDS: LANSOPRAZOLE 30 MG SOLUBLE TABLET PEG SCH (16:46)
[2019-08-12] MEDS: LISINOPRIL 20 MG TABLET PEG SCH (16:47)
[2019-08-12] MEDS: AmLODIPine BESYLATE 10 MG TABLET PEG SCH (16:47)
[2019-08-12 16:55] VITALS: BP 117/74
[2019-08-12] MEDS ORDERED: ACETAMINOPHEN 325 MG TABLET PEG PRN (19:00)
[2019-08-12] MEDS ORDERED: HYDROCODONE/ACETAMINOPHEN 5-325 MG TABLET PEG PRN (19:00)
[2019-08-12 20:17] VITALS: BP 122/73
[2019-08-12] MEDS: ATORVASTATIN CALCIUM 40 MG TABLET PEG SCH (20:39)
[2019-08-13] VITALS (7 sets, daily range): BP systolic 105–124; BP diastolic 49–80
[2019-08-13 06:51] LABS: BASOPHILS % (AUTO) 0.3 % (0.0-2.0); EOSINOPHILS % (AUTO) 1.5 % (1.0-6.0); HEMATOCRIT 28.7 % (41-53); HEMOGLOBIN 9.5 g/dL (13.5-17.5); LYMPHOCYTES # (AUTO) 1.5 K/uL (1.0-4.8); LYMPHOCYTES % (AUTO) 20.5 % (22.0-44.0); MEAN CORPUSCULAR HGB CONC 33.1 G/dL (31.0-37.0); MEAN CORPUSCULAR VOLUME 85 fL (80-100); MONOCYTES # (AUTO) 0.6 K/uL (0.1-1.0); MONOCYTES % (AUTO) 8.1 % (2.0-9.0); NEUTROPHILS % (AUTO) 69.6 % (40.0-70.0); PLATELET COUNT (AUTO) 471 K/uL (150-450); RED BLOOD CELL COUNT(AUTO) 3.39 MIL/uL (4.50-5.90); RED CELL DISTRIBUTION WIDTH 14.5 % (11.5-14.5)
[2019-08-13 06:55] LABS: ANION GAP 6 mmol/L (8-16); CALCIUM, TOTAL 8.8 mg/dL (8.8-10.5); CARBON DIOXIDE 29 mmol/L (22-29); CHLORIDE 99 mmol/L (98-107); CREATININE 0.77 mg/dL (0.60-1.30); GLOMERULAR FILTR. RATE CALC > 60 mL/min (>60); GLUCOSE,RANDOM 133 mg/dL (70-110); SODIUM SERUM 134 mmol/L (136-145); UREA NITROGEN, BLOOD 21 mg/dL (7-18)
[2019-08-13] MEDS: DOCUSATE SODIUM 100 MG/10 ML LIQUID UDCUP PEG SCH ×2 (08:51→19:50)
[2019-08-13] MEDS: LANSOPRAZOLE 30 MG SOLUBLE TABLET PEG SCH (08:52)
[2019-08-13] MEDS: LISINOPRIL 20 MG TABLET PEG SCH (08:53)
[2019-08-13] MEDS ORDERED: LISINOPRIL 20 MG TABLET PEG SCH (09:00)
[2019-08-13] MEDS: AmLODIPine BESYLATE 10 MG TABLET PEG SCH (12:47)
[2019-08-13] MEDS: ATORVASTATIN CALCIUM 40 MG TABLET PEG SCH (19:50)
[2019-08-14 05:14] VITALS: BP 108/74
[2019-08-14 05:36] LABS: GLUCOMETER DEV NAME(LOC) 5N.2; GLUCOSE,POINT OF CARE 125 MG/DL (70-110)
[2019-08-14 08:12] VITALS: BP 121/72
[2019-08-14 08:31] LABS: GLUCOMETER DEV NAME(LOC) 5S.1; GLUCOSE,POINT OF CARE 139 MG/DL (70-110)
[2019-08-14] MEDS: AmLODIPine BESYLATE 10 MG TABLET PEG SCH (09:13)
[2019-08-14] MEDS: DOCUSATE SODIUM 100 MG/10 ML LIQUID UDCUP PEG SCH (09:13)
[2019-08-14] MEDS: LANSOPRAZOLE 30 MG SOLUBLE TABLET PEG SCH (09:14)
[2019-08-14] MEDS: LISINOPRIL 20 MG TABLET PEG SCH (09:14)
[2019-08-14] MEDS ORDERED: DEXTROSE 50%-WATER 25 GM/50 ML SYRINGE IVP PRN (09:15)
[2019-08-14] MEDS ORDERED: INSULIN REGULAR, HUMAN 100 UNITS/ML SQ PRN (09:15)
[2019-08-14 11:50] VITALS: BP 120/78
[2019-08-14 15:07] VITALS: BP 114/65
[2019-08-14 20:46] LABS: GLUCOMETER DEV NAME(LOC) 5S.1; GLUCOSE,POINT OF CARE 132 MG/DL (70-110)
[2019-08-14 20:46] LABS: GLUCOMETER DEV NAME(LOC) 5N.2; GLUCOSE,POINT OF CARE 150 MG/DL (70-110)
== END 2019-08-14 20:05 | DRG 853 ==
LOC: ICU 13:20 → 5S 08-08 09:14
PROVIDERS: ADMIT Internal Medicine; ATTEND Internal Medicine
PROC: 5A1945Z Respiratory Ventilation, 24-96 Consecutive Hours (ICD-10-PCS; 2019-08-01)
PROC: 0BH17EZ Insertion of Endotracheal Airway into Trachea, Via Natural or Artificial Opening (ICD-10-PCS; 2019-08-01)
PROC: 00N00ZZ Release Brain, Open Approach (ICD-10-PCS; principal; 2019-08-01 16:00)
PROC: 0D20XUZ Change Feeding Device in Upper Intestinal Tract, External Approach (ICD-10-PCS; 2019-08-12)
DX: A41.9 Sepsis, unspecified organism (principal); I61.0 Nontraumatic intracerebral hemorrhage in hemisphere, subcortical; G93.6 Cerebral edema; J96.90 Respiratory failure, unspecified, unspecified whether with hypoxia or hypercapnia; G81.91 Hemiplegia, unspecified affecting right dominant side; N17.9 Acute kidney failure, unspecified; G91.9 Hydrocephalus, unspecified; L03.221 Cellulitis of neck; R47.01 Aphasia; Z43.1 Encounter for attention to gastrostomy; I10 Essential (primary) hypertension; E78.5 Hyperlipidemia, unspecified; M10.9 Gout, unspecified; N31.9 Neuromuscular dysfunction of bladder, unspecified; K21.9 Gastro-esophageal reflux disease without esophagitis; R13.10 Dysphagia, unspecified; E78.00 Pure hypercholesterolemia, unspecified; G47.33 Obstructive sleep apnea (adult) (pediatric); Z91.14 Patient's other noncompliance with medication regimen; Z86.73 Personal history of transient ischemic attack (TIA), and cerebral infarction without residual deficits
CPT/HCPCS: 36600; 70450; 70460; 70491; 76700; 82805; 83036; 84145; 84550; 87040; 87070; 87081; 87086; 87205; 94002; 94003; 97110; 97112; 97163; 97167; 97530; 97535; G0378; J0131; J0690; J0696; J0713; J1100; J2250; J2370; J2405; J2704; J2765; J3010; J3370; J3490; J7030; J7040; J7050; J7060

== ENCOUNTER → 2019-09-26 | Outpatient (CLI) | payer OTHER | END | disposition home or self-care (01) | LOC: RADMN 10:25 | PROVIDERS: ATTEND Physical Medicine & Rehabilitation | DX: I67.82 Cerebral ischemia (principal); I61.9 Nontraumatic intracerebral hemorrhage, unspecified | CPT/HCPCS: 70450 ==

== ENCOUNTER 2020-01-21 21:48 | Inpatient (IN) | payer OTHER ==
[~2020-01-21] VITALS: Ht 167.6 cm; Wt 65.7 kg
[2020-01-21] MEDS ORDERED: AMLO10TA7 PO (22:04)
[2020-01-21] MEDS ORDERED: ATOR20TA86 PO (22:05)
[2020-01-22 00:47] LABS: BASOPHILS % (AUTO) 0.7 % (0.0-2.0); EOSINOPHILS % (AUTO) 2.3 % (1.0-6.0); HEMATOCRIT 40.1 % (41-53); LYMPHOCYTES # (AUTO) 1.8 K/uL (1.0-4.8); LYMPHOCYTES % (AUTO) 46.4 % (22.0-44.0); MEAN CORPUSCULAR HEMOGLOBIN 26.5 pg (26.0-34.0); MEAN CORPUSCULAR HGB CONC 32.4 G/dL (31.0-37.0); MEAN CORPUSCULAR VOLUME 82 fL (80-100); MONOCYTES # (AUTO) 0.4 K/uL (0.1-1.0); NEUTROPHILS # (AUTO) 1.6 K/uL (1.8-7.7); NEUTROPHILS % (AUTO) 41.6 % (40.0-70.0); PLATELET COUNT (AUTO) 217 K/uL (150-450); RED BLOOD CELL COUNT(AUTO) 4.89 MIL/uL (4.50-5.90); RED CELL DISTRIBUTION WIDTH 16.3 % (11.5-14.5)
[2020-01-22 00:56] LABS: ANION GAP 9 mmol/L (8-16); CALCIUM, TOTAL 9.3 mg/dL (8.8-10.5); CARBON DIOXIDE 28 mmol/L (22-29); CHLORIDE 103 mmol/L (98-107); CREATININE 0.73 mg/dL (0.60-1.30); GLOMERULAR FILTR. RATE CALC > 60 mL/min (>60); GLUCOSE,RANDOM 101 mg/dL (70-110); POTASSIUM 3.7 mmol/L (3.5-5.1); SODIUM SERUM 140 mmol/L (136-145); UREA NITROGEN, BLOOD 14 mg/dL (7-18)
[2020-01-22 00:57] LABS: PROTHROMBIN TIME 10.2 SEC (9.4-11.6)
[2020-01-22 01:02] LABS: ALANINE AMINOTRANSFERASE 37 U/L (12-78); ALBUMIN 3.6 g/dL (3.4-5.0); ALKALINE PHOSPHATASE 77 U/L (46-116); ASPARTATE AMINOTRANSFERASE 23 U/L (15-37); BILIRUBIN,TOTAL 0.2 mg/dL (0.1-1.0); TOTAL PROTEIN, SERUM 7.3 g/dL (6.4-8.2)
[2020-01-22] MEDS ORDERED: ACETAMINOPHEN 325 MG TABLET PO PRN ×3 (01:30→09:00)
[2020-01-22] MEDS ORDERED: ONDANSETRON HCL 4 MG/2 ML VIAL IVP PRN ×2 (01:30→07:15)
[2020-01-22] MEDS ORDERED: 0.9% SODIUM CHLORIDE 10 ML SYRINGE IVP PRN (01:30)
[2020-01-22 03:07] VITALS: BP 129/73
[2020-01-22] MEDS ORDERED: LIDOCAINE 1%/EPI 1:200,000/PF 10 ML VIAL ONE (06:12)
[2020-01-22] MEDS ORDERED: BACITRACIN 50,000 UNITS/VIAL ONE (06:12)
[2020-01-22] MEDS ORDERED: RINGERS SOLUTION,LACTATED 0 ML IV ONE (06:13)
[2020-01-22] MEDS ORDERED: SODIUM CL IRRIG SOLN BAG 0 ML IRRIG ONE (06:13)
[2020-01-22] MEDS ORDERED: BACITRACIN 28.4 GM OINTMENT TP ONE (06:13)
[2020-01-22] MEDS ORDERED: RINGERS SOLUTION,LACTATED 1,000 ML IV ONE (06:15)
[2020-01-22] MEDS ORDERED: SODIUM CHLORIDE 0.9% 20 ML ONE (06:16)
[2020-01-22] MEDS ORDERED: SODIUM CHLORIDE 0.9% 250 ML IV ONE ×2 (06:18→16:54)
[2020-01-22] MEDS ORDERED: CeFAZolin 2 GM/DEXTROSE 50 ML IV ONE (06:30)
[2020-01-22] MEDS ORDERED: HYDROmorphone 2 MG/ML SYRINGE IVP PRN ×2 (07:15→07:45)
[2020-01-22] MEDS ORDERED: BENZOCAINE/MENTHOL LOZENGE PO PRN (07:15)
[2020-01-22] MEDS ORDERED: MAG HYDROX/AL HYDROX/SIMETH 30 ML SUSP UDCUP PO PRN (07:15)
[2020-01-22] MEDS ORDERED: OxyCODONE HCL/ACETAMINOPHEN 5-325 MG TABLET PO PRN ×2 (07:15)
[2020-01-22] MEDS ORDERED: DiphenhydrAMINE HCL 50 MG/ML VIAL IVP PRN (07:15)
[2020-01-22] MEDS ORDERED: MEPERIDINE-PF 25 MG/ML VIAL IVP PRN (07:45)
[2020-01-22] MEDS ORDERED: FentaNYL CITRATE-PF 100 MCG/2 ML VIAL IVP PRN (07:45)
[2020-01-22] MEDS ORDERED: THROMBIN, BOVINE 20000 UNITS/VIAL POWDER TP ONE (07:57)
[2020-01-22] MEDS ORDERED: GELATIN SPONGE,ABSORBABLE 50 MM TP ONE (07:57)
[2020-01-22] MEDS ORDERED: OXYGEN THERAPY IH SCH (08:00)
[2020-01-22] MEDS ORDERED: SUGAMMADEX SODIUM 200 MG/2 ML VIAL IVP ONE (08:28)
[2020-01-22] MEDS ORDERED: DOCUSATE SODIUM 100 MG CAPSULE PO SCH (09:00)
[2020-01-22] MEDS ORDERED: MAGNESIUM HYDROXIDE SUSPENSION 30 ML UDCUP PO PRN (09:00)
[2020-01-22] MEDS ORDERED: MORPHINE SULFATE 2 MG/ML SYRINGE IVP PRN (09:00)
[2020-01-22 11:30] VITALS: BP 102/67
[2020-01-22 12:00] VITALS: BP 119/80
[2020-01-22] MEDS ORDERED: ROCURONIUM BROMIDE 10 MG/ML 5 ML VIAL IVP ONE (12:00)
[2020-01-22] MEDS ORDERED: FentaNYL CITRATE-PF 100 MCG/2 ML VIAL IVP ONE (12:00)
[2020-01-22] MEDS ORDERED: MIDAZOLAM HCL 2 MG/2 ML VIAL IVP ONE (12:00)
[2020-01-22] MEDS ORDERED: LIDOCAINE 1% 10 ML VIAL INJ ONE (12:00)
[2020-01-22] MEDS ORDERED: ONDANSETRON HCL 4 MG/2 ML VIAL IVP ONE (12:00)
[2020-01-22] MEDS ORDERED: PROPOFOL 1% 20 ML VIAL IVP ONE (12:00)
[2020-01-22] MEDS ORDERED: DEXAMETHASONE SOD PHOS 4 MG/ML VIAL IVP ONE (12:00)
[2020-01-22 16:00] VITALS: BP 116/79
[2020-01-22] MEDS: CeFAZolin 1 GM/DEXTROSE 50 ML IV SCH ×2 (16:53→23:25)
[2020-01-22] MEDS: OxyCODONE HCL/ACETAMINOPHEN 5-325 MG TABLET PO PRN (17:11)
[2020-01-22 20:00] VITALS: BP 116/74
[2020-01-22] MEDS: OXYGEN THERAPY IH SCH (20:00)
[2020-01-22] MEDS: DOCUSATE SODIUM 100 MG CAPSULE PO SCH (20:51)
[2020-01-23] VITALS (8 sets, daily range): BP systolic 102–133; BP diastolic 63–81
[2020-01-23 05:40] LABS: EOSINOPHILS % (AUTO) 0 % (1.0-6.0); HEMATOCRIT 31.1 % (41-53); HEMOGLOBIN 10.1 g/dL (13.5-17.5); LYMPHOCYTES # (AUTO) 1.3 K/uL (1.0-4.8); LYMPHOCYTES % (AUTO) 17.6 % (22.0-44.0); MEAN CORPUSCULAR HEMOGLOBIN 26.3 pg (26.0-34.0); MEAN CORPUSCULAR HGB CONC 32.6 G/dL (31.0-37.0); MEAN CORPUSCULAR VOLUME 81 fL (80-100); MONOCYTES # (AUTO) 0.6 K/uL (0.1-1.0); NEUTROPHILS # (AUTO) 5.6 K/uL (1.8-7.7); NEUTROPHILS % (AUTO) 74.4 % (40.0-70.0); PLATELET COUNT (AUTO) 200 K/uL (150-450); RED BLOOD CELL COUNT(AUTO) 3.84 MIL/uL (4.50-5.90); RED CELL DISTRIBUTION WIDTH 16.2 % (11.5-14.5)
[2020-01-23 05:49] LABS: ANION GAP 7 mmol/L (8-16); CARBON DIOXIDE 28 mmol/L (22-29); CHLORIDE 103 mmol/L (98-107); CREATININE 0.96 mg/dL (0.60-1.30); GLOMERULAR FILTR. RATE CALC > 60 mL/min (>60); GLUCOSE,RANDOM 140 mg/dL (70-110); POTASSIUM 4.1 mmol/L (3.5-5.1); SODIUM SERUM 138 mmol/L (136-145); UREA NITROGEN, BLOOD 18 mg/dL (7-18)
[2020-01-23] MEDS: FAMOTIDINE 20 MG TABLET PO SCH ×2 (08:34→09:03)
[2020-01-23] MEDS: OXYGEN THERAPY IH SCH (08:35)
[2020-01-23] MEDS: DOCUSATE SODIUM 100 MG CAPSULE PO SCH ×2 (08:35→21:33)
[2020-01-23] MEDS: OxyCODONE HCL/ACETAMINOPHEN 5-325 MG TABLET PO PRN (11:49)
[2020-01-24 04:28] VITALS: BP 123/67
[2020-01-24 08:00] VITALS: BP 115/71
[2020-01-24] MEDS: DOCUSATE SODIUM 100 MG CAPSULE PO SCH (08:53)
[2020-01-24] MEDS: FAMOTIDINE 20 MG TABLET PO SCH (08:53)
[2020-01-24 11:30] VITALS: BP 122/75
[2020-01-24] MEDS ORDERED: ACET-66 PO (16:43)
[2020-01-25] MEDS ORDERED: LevETIRAcetam 1,000 MG in DEXTROSE 5%-WATER 100 ML IV ONE (13:15)
[2020-01-25] MEDS ORDERED: ATOR40TA28 PO (13:17)
== END 2020-01-24 19:00 | disposition home or self-care (01) | DRG 26 ==
LOC: EMS 21:49 → 4E 01-22 01:59 → ICU 01-22 11:28 → 5S 01-23 17:05
PROVIDERS: ADMIT Internal Medicine; ATTEND Internal Medicine
PROC: 0NR00JZ Replacement of Skull with Synthetic Substitute, Open Approach (ICD-10-PCS; principal; 2020-01-22 07:00)
DX: I69.30 Unspecified sequelae of cerebral infarction (principal); G81.91 Hemiplegia, unspecified affecting right dominant side; D50.0 Iron deficiency anemia secondary to blood loss (chronic); E78.00 Pure hypercholesterolemia, unspecified; I10 Essential (primary) hypertension; E78.5 Hyperlipidemia, unspecified; R29.810 Facial weakness; Z88.6 Allergy status to analgesic agent; Z88.8 Allergy status to other drugs, medicaments and biological substances; Z93.1 Gastrostomy status
CPT/HCPCS: 70450; 86850; 86900; 86901; 87081; 93005; 97162; 97530; G0378; J0690; J1100; J1170; J2250; J2405; J2704; J3010; J3490; J7050; J7120

== ENCOUNTER 2020-01-25 12:18 | Inpatient (IN) | payer OTHER ==
[~2020-01-25] VITALS: Ht 170.2 cm; Wt 61.8 kg
[~2020-01-25 12:18] MED LIST changes: +ACET-66 PO; +AMLO10TA7 PO; +ATOR20TA86 PO
[2020-01-25] MEDS ORDERED: LevETIRAcetam 1,000 MG in DEXTROSE 5%-WATER 100 ML IV ONE (13:15)
[2020-01-25] MEDS ORDERED: ATOR40TA28 PO (13:17)
[2020-01-25 13:57] LABS: BASOPHILS % (AUTO) 0.2 % (0.0-2.0); EOSINOPHILS % (AUTO) 0 % (1.0-6.0); HEMATOCRIT 33.9 % (41-53); HEMOGLOBIN 10.9 g/dL (13.5-17.5); LYMPHOCYTES # (AUTO) 0.8 K/uL (1.0-4.8); LYMPHOCYTES % (AUTO) 11.9 % (22.0-44.0); MEAN CORPUSCULAR HEMOGLOBIN 26.2 pg (26.0-34.0); MEAN CORPUSCULAR HGB CONC 32.3 G/dL (31.0-37.0); MEAN CORPUSCULAR VOLUME 81 fL (80-100); MONOCYTES # (AUTO) 0.8 K/uL (0.1-1.0); MONOCYTES % (AUTO) 11.8 % (2.0-9.0); NEUTROPHILS # (AUTO) 5.3 K/uL (1.8-7.7); NEUTROPHILS % (AUTO) 76.1 % (40.0-70.0); PLATELET COUNT (AUTO) 216 K/uL (150-450); RED BLOOD CELL COUNT(AUTO) 4.17 MIL/uL (4.50-5.90); RED CELL DISTRIBUTION WIDTH 16.3 % (11.5-14.5)
[2020-01-25 14:06] LABS: ANION GAP 8 mmol/L (8-16); CARBON DIOXIDE 29 mmol/L (22-29); CHLORIDE 97 mmol/L (98-107); CREATININE 0.93 mg/dL (0.60-1.30); GLOMERULAR FILTR. RATE CALC > 60 mL/min (>60); GLUCOSE,RANDOM 110 mg/dL (70-110); POTASSIUM 3.4 mmol/L (3.5-5.1); SODIUM SERUM 134 mmol/L (136-145); UREA NITROGEN, BLOOD 10 mg/dL (7-18)
[2020-01-25 14:36] LABS: ALANINE AMINOTRANSFERASE 37 U/L (12-78); ALBUMIN 3.7 g/dL (3.4-5.0); ALKALINE PHOSPHATASE 73 U/L (46-116); ASPARTATE AMINOTRANSFERASE 28 U/L (15-37); BILIRUBIN,TOTAL 0.5 mg/dL (0.1-1.0); CREATINE KINASE, TOTAL ONLY 126 U/L (39-308); TOTAL PROTEIN, SERUM 8.1 g/dL (6.4-8.2)
[2020-01-25 15:38] LABS: GLUCOSE,POINT OF CARE 109 MG/DL (70-110)
[2020-01-25] MEDS ORDERED: POTASSIUM CHL 10 MEQ/WATER 50 ML IV PRN (15:45)
[2020-01-25] MEDS ORDERED: LORazepam 2 MG/ML VIAL IVP PRN (15:45)
[2020-01-25] MEDS ORDERED: SODIUM CHLORIDE 0.9% 2,200 ML IV ONE (15:45)
[2020-01-25] MEDS ORDERED: SODIUM CHLORIDE 0.9% 1,000 ML IV ONE (15:45)
[2020-01-25] MEDS ORDERED: POTASSIUM CHLORIDE 20 MEQ ER TABLET PO PRN (15:45)
[2020-01-25] MEDS ORDERED: ACETAMINOPHEN 325 MG TABLET PO PRN (16:00)
[2020-01-25] MEDS ORDERED: MORPHINE SULFATE 2 MG/ML SYRINGE IVP PRN (16:00)
[2020-01-25] MEDS ORDERED: ONDANSETRON HCL 4 MG/2 ML VIAL IVP PRN (16:00)
[2020-01-25] MEDS ORDERED: BISACODYL 10 MG RECTAL RECTAL SUPPOSITORY PR PRN (16:00)
[2020-01-25 16:19] LABS: INFLUENZA TYPE A NEGATIVE FOR TYPE A (NEGATIVE); INFLUENZA TYPE B NEGATIVE FOR TYPE B (NEGATIVE)
[2020-01-25 19:04] LABS: APPEARANCE,URINE CLEAR (CLEAR); BILIRUBIN,URINE NEGATIVE (NEGATIVE); GLUCOSE, URINE (UA) 500 mg/dL (NEGATIVE); KETONES,URINE NEGATIVE (NEGATIVE); LEUKOCYTE ESTERASE ,URINE NEGATIVE (NEGATIVE); NITRATE,URINE NEGATIVE (NEGATIVE); OCCULT BLOOD,URINE NEGATIVE (NEGATIVE); PROTEIN,URINE TRACE (NEGATIVE); UROBILINOGEN,URINE 0.2 mg/dL (<=1.0)
[2020-01-25 19:12] LABS: BACTERIA,URINE Rare /HPF (None Seen); RBC,URINE None Seen /HPF (0-2); SQUAMOUS EPITHELIAL CELL,UR Few /LPF (None Seen); WBC,URINE 0-2 /HPF (0-5)
[2020-01-25] MEDS: ATORVASTATIN CALCIUM 20 MG TABLET PO SCH (20:59)
[2020-01-25] MEDS: DOCUSATE SODIUM 100 MG CAPSULE PO SCH (20:59)
[2020-01-26] MEDS: LevETIRAcetam 500 MG in DEXTROSE 5%-WATER 100 ML IV SCH ×2 (04:10→17:35)
[2020-01-26] MEDS: DOCUSATE SODIUM 100 MG CAPSULE PO SCH (09:00)
[2020-01-26] MEDS: FAMOTIDINE 20 MG TABLET PO SCH (09:00)
[2020-01-26 15:31] VITALS: BP 129/86
[2020-01-26] MEDS ORDERED: SODIUM CHLORIDE 0.9% 250 ML IV ONE (17:20)
[2020-01-26 20:21] VITALS: BP 140/85
[2020-01-26 23:54] VITALS: BP 136/86
[2020-01-27] MEDS: DOCUSATE SODIUM 100 MG CAPSULE PO SCH ×3 (00:03→21:43)
[2020-01-27] MEDS: ATORVASTATIN CALCIUM 20 MG TABLET PO SCH ×2 (00:03→21:44)
[2020-01-27] MEDS: LevETIRAcetam 500 MG in DEXTROSE 5%-WATER 100 ML IV SCH ×2 (04:14→15:28)
[2020-01-27 04:32] VITALS: BP 119/77
[2020-01-27 07:14] VITALS: BP 122/77
[2020-01-27] MEDS: FAMOTIDINE 20 MG TABLET PO SCH (07:55)
[2020-01-27 11:03] VITALS: BP 119/79
[2020-01-27] MEDS ORDERED: LEVE500T53 PO (14:12)
[2020-01-27 15:46] LABS: BASOPHILS % (AUTO) 0.3 % (0.0-2.0); EOSINOPHILS % (AUTO) 0 % (1.0-6.0); HEMATOCRIT 29.5 % (41-53); HEMOGLOBIN 9.8 g/dL (13.5-17.5); LYMPHOCYTES # (AUTO) 1.4 K/uL (1.0-4.8); LYMPHOCYTES % (AUTO) 16.7 % (22.0-44.0); MEAN CORPUSCULAR HEMOGLOBIN 26.7 pg (26.0-34.0); MEAN CORPUSCULAR HGB CONC 33.1 G/dL (31.0-37.0); MEAN CORPUSCULAR VOLUME 81 fL (80-100); MONOCYTES # (AUTO) 1.2 K/uL (0.1-1.0); MONOCYTES % (AUTO) 14.5 % (2.0-9.0); NEUTROPHILS # (AUTO) 5.6 K/uL (1.8-7.7); NEUTROPHILS % (AUTO) 68.5 % (40.0-70.0); PLATELET COUNT (AUTO) 247 K/uL (150-450); RED BLOOD CELL COUNT(AUTO) 3.65 MIL/uL (4.50-5.90); RED CELL DISTRIBUTION WIDTH 15.6 % (11.5-14.5)
[2020-01-27 15:56] LABS: ANION GAP 7 mmol/L (8-16); CARBON DIOXIDE 28 mmol/L (22-29); CHLORIDE 97 mmol/L (98-107); CREATININE 0.89 mg/dL (0.60-1.30); GLOMERULAR FILTR. RATE CALC > 60 mL/min (>60); GLUCOSE,RANDOM 127 mg/dL (70-110); POTASSIUM 3.7 mmol/L (3.5-5.1); SODIUM SERUM 132 mmol/L (136-145); UREA NITROGEN, BLOOD 17 mg/dL (7-18)
[2020-01-27 20:03] VITALS: BP 128/77
[2020-01-27 20:07] VITALS: BP 130/98
[2020-01-28] MEDS ORDERED: SODIUM CHLORIDE 0.9% 500 ML IV ONE
[2020-01-28 03:26] VITALS: BP 115/73
[2020-01-28] MEDS: LevETIRAcetam 500 MG in DEXTROSE 5%-WATER 100 ML IV SCH ×2 (03:57→15:20)
[2020-01-28] MEDS ORDERED: VANCOMYCIN HCL 1 GM/VIAL ONE ×2 (07:20→13:47)
[2020-01-28] MEDS ORDERED: LIDOCAINE 1%/EPI 1:200,000/PF 10 ML VIAL ONE ×2 (07:20→13:46)
[2020-01-28] MEDS ORDERED: BACITRACIN 50,000 UNITS/VIAL ONE ×2 (07:21→13:49)
[2020-01-28] MEDS ORDERED: THROMBIN, BOVINE 20000 UNITS/VIAL POWDER TP ONE ×2 (07:22→13:50)
[2020-01-28] MEDS ORDERED: BACITRACIN 28.4 GM OINTMENT TP ONE ×2 (07:22→13:48)
[2020-01-28] MEDS ORDERED: GELATIN SPONGE,ABSORBABLE 50 MM TP ONE ×2 (07:23→13:48)
[2020-01-28] MEDS ORDERED: SODIUM CL IRRIG SOLN BAG 9,000 ML IRRIG ONE (07:25)
[2020-01-28 08:19] VITALS: BP 109/45
[2020-01-28] MEDS: DOCUSATE SODIUM 100 MG CAPSULE PO SCH ×2 (09:00→20:45)
[2020-01-28] MEDS: FAMOTIDINE 20 MG TABLET PO SCH (09:00)
[2020-01-28 11:11] VITALS: BP 122/73
[2020-01-28] MEDS ORDERED: SODIUM CHLORIDE 0.9% 20 ML ONE (13:47)
[2020-01-28 15:48] VITALS: BP 113/74
[2020-01-28] MEDS ORDERED: RINGERS SOLUTION,LACTATED 1,000 ML IV ONE (17:00)
[2020-01-28] MEDS ORDERED: HYDROmorphone 2 MG/ML SYRINGE IVP PRN (17:45)
[2020-01-28] MEDS ORDERED: FentaNYL CITRATE-PF 100 MCG/2 ML VIAL IVP PRN (17:45)
[2020-01-28] MEDS ORDERED: MEPERIDINE-PF 25 MG/ML VIAL IVP PRN (17:45)
[2020-01-28] MEDS: OXYGEN THERAPY IH SCH (20:00)
[2020-01-28] MEDS: ATORVASTATIN CALCIUM 20 MG TABLET PO SCH (20:47)
[2020-01-29] MEDS: LevETIRAcetam 500 MG in DEXTROSE 5%-WATER 100 ML IV SCH ×2 (04:28→15:45)
[2020-01-29 04:51] VITALS: BP 118/72
[2020-01-29] MEDS ORDERED: SODIUM CHLORIDE 0.9% 20 ML ONE (06:40)
[2020-01-29] MEDS ORDERED: LIDOCAINE 1%/EPI 1:200,000/PF 10 ML VIAL ONE (06:40)
[2020-01-29] MEDS ORDERED: VANCOMYCIN HCL 1 GM/VIAL ONE (06:41)
[2020-01-29] MEDS ORDERED: BACITRACIN 50,000 UNITS/VIAL ONE (06:41)
[2020-01-29] MEDS ORDERED: BACITRACIN 28.4 GM OINTMENT TP ONE (06:42)
[2020-01-29 06:43] LABS: BASOPHILS % (AUTO) 0.4 % (0.0-2.0); EOSINOPHILS % (AUTO) 2.4 % (1.0-6.0); HEMATOCRIT 28.4 % (41-53); HEMOGLOBIN 9.2 g/dL (13.5-17.5); LYMPHOCYTES # (AUTO) 1.8 K/uL (1.0-4.8); LYMPHOCYTES % (AUTO) 24.4 % (22.0-44.0); MEAN CORPUSCULAR HEMOGLOBIN 26.2 pg (26.0-34.0); MEAN CORPUSCULAR HGB CONC 32.5 G/dL (31.0-37.0); MEAN CORPUSCULAR VOLUME 81 fL (80-100); MONOCYTES # (AUTO) 0.5 K/uL (0.1-1.0); MONOCYTES % (AUTO) 7.3 % (2.0-9.0); NEUTROPHILS # (AUTO) 4.8 K/uL (1.8-7.7); NEUTROPHILS % (AUTO) 65.5 % (40.0-70.0); PLATELET COUNT (AUTO) 307 K/uL (150-450); RED BLOOD CELL COUNT(AUTO) 3.52 MIL/uL (4.50-5.90)
[2020-01-29] MEDS ORDERED: THROMBIN, BOVINE 20000 UNITS/VIAL POWDER TP ONE (06:43)
[2020-01-29 06:57] LABS: ANION GAP 9 mmol/L (8-16); CALCIUM, TOTAL 8.8 mg/dL (8.8-10.5); CARBON DIOXIDE 29 mmol/L (22-29); CHLORIDE 102 mmol/L (98-107); CREATININE 0.77 mg/dL (0.60-1.30); GLOMERULAR FILTR. RATE CALC > 60 mL/min (>60); GLUCOSE,RANDOM 101 mg/dL (70-110); POTASSIUM 3.9 mmol/L (3.5-5.1); SODIUM SERUM 140 mmol/L (136-145); UREA NITROGEN, BLOOD 16 mg/dL (7-18)
[2020-01-29 07:27] VITALS: BP 117/79
[2020-01-29] MEDS: OXYGEN THERAPY IH SCH (08:00)
[2020-01-29] MEDS: FAMOTIDINE 20 MG TABLET PO SCH (08:48)
[2020-01-29] MEDS: DOCUSATE SODIUM 100 MG CAPSULE PO SCH (08:48)
[2020-01-29 11:22] VITALS: BP 119/67
[2020-01-29 16:02] VITALS: BP 111/70
== END 2020-01-29 17:00 | disposition home or self-care (01) | DRG 65 ==
LOC: EMS 12:20 → 5N 01-26 14:07 → 5S 01-27 17:10
PROVIDERS: ADMIT Internal Medicine; ATTEND Internal Medicine
DX: I62.9 Nontraumatic intracranial hemorrhage, unspecified (principal); E44.0 Moderate protein-calorie malnutrition; E87.1 Hypo-osmolality and hyponatremia; I69.351 Hemiplegia and hemiparesis following cerebral infarction affecting right dominant side; E78.00 Pure hypercholesterolemia, unspecified; I10 Essential (primary) hypertension; E87.6 Hypokalemia; E78.5 Hyperlipidemia, unspecified; Z68.21 Body mass index [BMI] 21.0-21.9, adult; Z88.8 Allergy status to other drugs, medicaments and biological substances; Z93.1 Gastrostomy status; Z88.6 Allergy status to analgesic agent
CPT/HCPCS: 51702; 70450; 82948; 83605; 83735; 84132; 87081; 87804; J0712; J2270; J3370; J3490; J7030; J7040; J7050; J7060; J7120

== ENCOUNTER 2020-03-01 17:45 | Inpatient (IN) | payer OTHER ==
[~2020-03-01] VITALS: Ht 167.6 cm; Wt 62.0 kg
[~2020-03-01 17:45] MED LIST changes: -ACET-66 PO; +AMLO-258 PO; -AMLO10TA7 PO; -ATOR20TA86 PO; +ATOR40TA28 PO; -COLC0.6T73 PO; -OMEP20 PO
[2020-03-12] MEDS ORDERED: LEVE500T53 PO (15:15)
[2021-01-14 13:42] LABS: BASOPHILS % (AUTO) 0.8 % (0.0-2.0); EOSINOPHILS % (AUTO) 1.1 % (1.0-6.0); HEMATOCRIT 44.8 % (41-53); HEMOGLOBIN 14.5 g/dL (13.5-17.5); LYMPHOCYTES # (AUTO) 1.5 K/uL (1.0-4.8); LYMPHOCYTES % (AUTO) 46.5 % (22.0-44.0); MEAN CORPUSCULAR HEMOGLOBIN 27.1 pg (26.0-34.0); MEAN CORPUSCULAR HGB CONC 32.3 G/dL (31.0-37.0); MEAN CORPUSCULAR VOLUME 84 fL (80-100); MONOCYTES # (AUTO) 0.2 K/uL (0.1-1.0); MONOCYTES % (AUTO) 7.6 % (2.0-9.0); NEUTROPHILS # (AUTO) 1.4 K/uL (1.8-7.7); PLATELET COUNT (AUTO) 203 K/uL (150-450); RED BLOOD CELL COUNT(AUTO) 5.35 MIL/uL (4.50-5.90); RED CELL DISTRIBUTION WIDTH 13.7 % (11.5-14.5)
[2021-01-14 13:45] LABS: COVID AG,FIA SOURCE NASOPHARYNGEAL
[2021-01-14 14:26] LABS: PROTHROMBIN TIME 10.4 SEC (9.4-11.6)
[2021-01-14] MEDS ORDERED: CALCIUM MAG ZINC PO (14:46)
[2021-01-14] MEDS ORDERED: COLC0.6T68 PO (14:46)
[2021-01-14] MEDS ORDERED: QUET25TA34 PO (14:46)
[2021-01-14] MEDS ORDERED: OMEP20CA12 PO (14:46)
[2021-01-17] MEDS ORDERED: RINGERS SOLUTION,LACTATED 1,000 ML IV ONE ×2 (05:38→06:00)
[2021-01-17] MEDS ORDERED: CeFAZolin 2 GM/DEXTROSE 50 ML IV ONE ×2 (05:38→07:00)
[2021-01-17] MEDS ORDERED: LIDOCAINE 1%/EPI 1:200,000/PF 30 ML VIAL ONE (06:35)
[2021-01-17] MEDS ORDERED: VANCOMYCIN HCL 1 GM/VIAL ONE ×2 (06:35→07:20)
[2021-01-17] MEDS ORDERED: SODIUM CHLORIDE 0.9% 1,000 ML ONE (06:36)
[2021-01-17] MEDS ORDERED: THROMBIN, BOVINE 20000 UNITS/VIAL POWDER TP ONE (06:36)
[2021-01-17] MEDS ORDERED: GELATIN SPONGE,ABSORBABLE 100 MM TP ONE (06:36)
[2021-01-17] MEDS ORDERED: BACITRACIN 50,000 UNITS/VIAL ONE ×2 (06:36→08:48)
[2021-01-17] MEDS ORDERED: SODIUM CHLORIDE 0.9% 500 ML IV ONE (06:40)
[2021-01-17] MEDS ORDERED: SODIUM CHLORIDE 0.9% 30 ML ONE (06:44)
[2021-01-17 06:47] LABS: ANION GAP 12 mmol/L (8-16); CALCIUM, TOTAL 8.4 mg/dL (8.8-10.5); CARBON DIOXIDE 25 mmol/L (22-29); CHLORIDE 105 mmol/L (98-107); CREATININE 0.65 mg/dL (0.60-1.30); GLOMERULAR FILTR. RATE CALC > 60 mL/min (>60); GLUCOSE,RANDOM 90 mg/dL (70-110); POTASSIUM 3.9 mmol/L (3.5-5.1); SODIUM SERUM 142 mmol/L (136-145); UREA NITROGEN, BLOOD 6 mg/dL (7-18)
[2021-01-17] MEDS ORDERED: BACITRACIN 28 GM OINTMENT TP ONE (07:00)
[2021-01-17] MEDS ORDERED: MAG HYDROX/AL HYDROX/SIMETH 30 ML SUSP UDCUP PO PRN (07:30)
[2021-01-17] MEDS ORDERED: DiphenhydrAMINE HCL 50 MG/ML VIAL IVP PRN (07:30)
[2021-01-17] MEDS ORDERED: OxyCODONE HCL/ACETAMINOPHEN 5-325 MG TABLET PO PRN ×2 (07:30)
[2021-01-17] MEDS ORDERED: BACITRACIN 28 GM OINTMENT TP PRN (07:30)
[2021-01-17] MEDS ORDERED: BENZOCAINE/MENTHOL LOZENGE PO PRN (07:30)
[2021-01-17] MEDS ORDERED: HYDROmorphone 2 MG/ML VIAL IVP PRN (07:30)
[2021-01-17] MEDS ORDERED: CefTRIAXone SODIUM 1 GM/VIAL ONE (07:39)
[2021-01-17] MEDS ORDERED: SUGAMMADEX SODIUM 200 MG/2 ML VIAL IVP ONE (08:08)
[2021-01-17] MEDS ORDERED: DOCUSATE SODIUM 100 MG CAPSULE PO SCH (09:00)
[2021-01-17] MEDS ORDERED: HYDROmorphone 2 MG/ML VIAL ONE (11:41)
[2021-01-17] MEDS ORDERED: HYDROmorphone 2 MG/ML VIAL IVP ONE (11:45)
[2021-01-17] MEDS ORDERED: LEVE750T10 PO (11:58)
[2021-01-17 13:12] VITALS: BP 121/75
[2021-01-17] MEDS ORDERED: SODIUM CHLORIDE 0.9% 250 ML IV ONE (14:45)
[2021-01-17] MEDS: ACETAMINOPHEN 1000 MG/ISO-OSM 100 ML IV SCH ×2 (14:50→18:24)
[2021-01-17] MEDS: CeFAZolin 1 GM/DEXTROSE 50 ML IV SCH ×2 (15:20→23:11)
[2021-01-17 16:44] VITALS: BP 131/79
[2021-01-17 19:19] VITALS: BP 123/68
[2021-01-17] MEDS ORDERED: ACETAMINOPHEN 325 MG TABLET PO PRN (19:45)
[2021-01-17] MEDS ORDERED: ONDANSETRON HCL 4 MG/2 ML VIAL IVP PRN (19:45)
[2021-01-17] MEDS ORDERED: VANCOMYCIN HCL 1 GM/D5% WATER 200 ML IV SCH (20:00)
[2021-01-17] MEDS: DOCUSATE SODIUM 100 MG CAPSULE PO SCH (20:25)
[2021-01-17] MEDS: LevETIRAcetam 250 MG TABLET PO SCH (20:27)
[2021-01-17 23:13] VITALS: BP 120/65
[2021-01-18] MEDS: ACETAMINOPHEN 1000 MG/ISO-OSM 100 ML IV SCH ×2 (01:46→06:00)
[2021-01-18 03:37] VITALS: BP 119/76
[2021-01-18 06:26] LABS: BASOPHILS % (AUTO) 0.1 % (0.0-2.0); EOSINOPHILS % (AUTO) 0 % (1.0-6.0); HEMATOCRIT 34.5 % (41-53); HEMOGLOBIN 11.3 g/dL (13.5-17.5); LYMPHOCYTES # (AUTO) 1.3 K/uL (1.0-4.8); LYMPHOCYTES % (AUTO) 13.9 % (22.0-44.0); MEAN CORPUSCULAR HEMOGLOBIN 27.1 pg (26.0-34.0); MEAN CORPUSCULAR HGB CONC 32.7 G/dL (31.0-37.0); MEAN CORPUSCULAR VOLUME 83 fL (80-100); MONOCYTES # (AUTO) 0.6 K/uL (0.1-1.0); MONOCYTES % (AUTO) 6.9 % (2.0-9.0); NEUTROPHILS # (AUTO) 7.4 K/uL (1.8-7.7); NEUTROPHILS % (AUTO) 79.1 % (40.0-70.0); PLATELET COUNT (AUTO) 179 K/uL (150-450); RED BLOOD CELL COUNT(AUTO) 4.16 MIL/uL (4.50-5.90); RED CELL DISTRIBUTION WIDTH 13.8 % (11.5-14.5)
[2021-01-18] MEDS ORDERED: LIDOCAINE/PF 2% 5 ML VIAL IM ONE (06:26)
[2021-01-18] MEDS ORDERED: ONDANSETRON HCL 4 MG/2 ML VIAL IVP ONE (06:26)
[2021-01-18] MEDS ORDERED: ROCURONIUM BROMIDE 10 MG/ML 5 ML VIAL IVP ONE (06:26)
[2021-01-18] MEDS ORDERED: PROPOFOL 1% 20 ML VIAL IVP ONE (06:26)
[2021-01-18] MEDS ORDERED: DEXAMETHASONE SOD PHOS 4 MG/ML VIAL IVP ONE (06:26)
[2021-01-18] MEDS ORDERED: FentaNYL CITRATE PF 100 MCG/2 ML VIAL IVP ONE (06:26)
[2021-01-18] MEDS ORDERED: MORPHINE SULFATE/PF 0.5 MG/ML 10 ML AMP IVP ONE (06:26)
[2021-01-18 06:50] LABS: ANION GAP 8 mmol/L (8-16); CALCIUM, TOTAL 8.9 mg/dL (8.8-10.5); CARBON DIOXIDE 28 mmol/L (22-29); CHLORIDE 104 mmol/L (98-107); CREATININE 0.89 mg/dL (0.60-1.30); GLOMERULAR FILTR. RATE CALC > 60 mL/min (>60); GLUCOSE,RANDOM 114 mg/dL (70-110); POTASSIUM 3.6 mmol/L (3.5-5.1); SODIUM SERUM 140 mmol/L (136-145); UREA NITROGEN, BLOOD 12 mg/dL (7-18)
[2021-01-18 07:50] VITALS: BP 100/60
[2021-01-18] MEDS ORDERED: OxyCODONE HCL 5 MG IR TABLET PO PRN ×2 (08:15)
[2021-01-18] MEDS: FAMOTIDINE 20 MG TABLET PO SCH (08:40)
[2021-01-18] MEDS: LevETIRAcetam 250 MG TABLET PO SCH ×2 (08:40→20:42)
[2021-01-18] MEDS: DOCUSATE SODIUM 100 MG CAPSULE PO SCH ×2 (08:41→20:43)
[2021-01-18] MEDS: VANCOMYCIN HCL 1 GM/D5% WATER 200 ML IV SCH (10:38)
[2021-01-18] MEDS ORDERED: SODIUM CHLORIDE 0.9% 250 ML IV ONE (10:44)
[2021-01-18 11:38] VITALS: BP 110/68
[2021-01-18 15:40] VITALS: BP 98/61
[2021-01-18 20:28] VITALS: BP 137/77
[2021-01-18 23:31] VITALS: BP 131/75
[2021-01-19 04:08] VITALS: BP 123/74
[2021-01-19 07:38] VITALS: BP 124/69
[2021-01-19] MEDS: FAMOTIDINE 20 MG TABLET PO SCH (08:08)
[2021-01-19] MEDS: VANCOMYCIN HCL 1 GM/D5% WATER 200 ML IV SCH (08:09)
[2021-01-19] MEDS: DOCUSATE SODIUM 100 MG CAPSULE PO SCH ×2 (08:09→20:12)
[2021-01-19] MEDS: LevETIRAcetam 250 MG TABLET PO SCH ×2 (08:09→20:12)
[2021-01-19 11:30] VITALS: BP 126/76
[2021-01-19 15:29] VITALS: BP 149/92
[2021-01-19 19:23] VITALS: BP 139/89
[2021-01-19 23:09] VITALS: BP 150/90
[2021-01-20 05:25] VITALS: BP 133/78
[2021-01-20 06:41] LABS: BASOPHILS % (AUTO) 0.3 % (0.0-2.0); EOSINOPHILS % (AUTO) 0.2 % (1.0-6.0); HEMATOCRIT 28.8 % (41-53); HEMOGLOBIN 9.5 g/dL (13.5-17.5); LYMPHOCYTES # (AUTO) 1.7 K/uL (1.0-4.8); LYMPHOCYTES % (AUTO) 22.9 % (22.0-44.0); MEAN CORPUSCULAR HEMOGLOBIN 27.2 pg (26.0-34.0); MEAN CORPUSCULAR HGB CONC 33.1 G/dL (31.0-37.0); MEAN CORPUSCULAR VOLUME 82 fL (80-100); MONOCYTES # (AUTO) 0.7 K/uL (0.1-1.0); MONOCYTES % (AUTO) 9.5 % (2.0-9.0); NEUTROPHILS % (AUTO) 67.1 % (40.0-70.0); PLATELET COUNT (AUTO) 158 K/uL (150-450); RED BLOOD CELL COUNT(AUTO) 3.51 MIL/uL (4.50-5.90)
[2021-01-20 07:02] LABS: ALANINE AMINOTRANSFERASE 22 U/L (12-78); ALBUMIN 3.1 g/dL (3.4-5.0); ALKALINE PHOSPHATASE 54 U/L (46-116); ANION GAP 7 mmol/L (8-16); ASPARTATE AMINOTRANSFERASE 27 U/L (15-37); BILIRUBIN,TOTAL 0.5 mg/dL (0.1-1.0); CALCIUM, TOTAL 8.7 mg/dL (8.8-10.5); CARBON DIOXIDE 28 mmol/L (22-29); CHLORIDE 103 mmol/L (98-107); CREATININE 0.78 mg/dL (0.60-1.30); GLOMERULAR FILTR. RATE CALC > 60 mL/min (>60); GLUCOSE,RANDOM 129 mg/dL (70-110); POTASSIUM 3.6 mmol/L (3.5-5.1); SODIUM SERUM 138 mmol/L (136-145); TOTAL PROTEIN, SERUM 6.7 g/dL (6.4-8.2); UREA NITROGEN, BLOOD 9 mg/dL (7-18)
[2021-01-20 07:29] VITALS: BP 133/73
[2021-01-20] MEDS: FAMOTIDINE 20 MG TABLET PO SCH (08:16)
[2021-01-20] MEDS: DOCUSATE SODIUM 100 MG CAPSULE PO SCH ×2 (08:16→20:04)
[2021-01-20] MEDS: LevETIRAcetam 250 MG TABLET PO SCH ×2 (08:16→20:05)
[2021-01-20] MEDS: BACITRACIN 28 GM OINTMENT TP SCH (09:15)
[2021-01-20 11:44] VITALS: BP 134/90
[2021-01-20 15:41] VITALS: BP 134/83
[2021-01-20 19:19] VITALS: BP 139/73
[2021-01-21 04:25] VITALS: BP 141/90
[2021-01-21 07:43] VITALS: BP 137/82
[2021-01-21] MEDS: FAMOTIDINE 20 MG TABLET PO SCH (08:03)
[2021-01-21] MEDS: DOCUSATE SODIUM 100 MG CAPSULE PO SCH (08:03)
[2021-01-21] MEDS: LevETIRAcetam 250 MG TABLET PO SCH (08:04)
[2021-01-21] MEDS: BACITRACIN 28 GM OINTMENT TP SCH (08:04)
[2021-01-21 11:29] LABS: BASOPHILS % (AUTO) 0.4 % (0.0-2.0); EOSINOPHILS % (AUTO) 0.3 % (1.0-6.0); HEMATOCRIT 30.8 % (41-53); HEMOGLOBIN 9.9 g/dL (13.5-17.5); LYMPHOCYTES # (AUTO) 1.3 K/uL (1.0-4.8); LYMPHOCYTES % (AUTO) 23.6 % (22.0-44.0); MEAN CORPUSCULAR HEMOGLOBIN 26.9 pg (26.0-34.0); MEAN CORPUSCULAR HGB CONC 32.3 G/dL (31.0-37.0); MEAN CORPUSCULAR VOLUME 83 fL (80-100); MONOCYTES # (AUTO) 0.5 K/uL (0.1-1.0); MONOCYTES % (AUTO) 9.6 % (2.0-9.0); NEUTROPHILS # (AUTO) 3.5 K/uL (1.8-7.7); NEUTROPHILS % (AUTO) 66.1 % (40.0-70.0); PLATELET COUNT (AUTO) 204 K/uL (150-450); RED BLOOD CELL COUNT(AUTO) 3.69 MIL/uL (4.50-5.90); RED CELL DISTRIBUTION WIDTH 13.6 % (11.5-14.5)
[2021-01-21 11:58] VITALS: BP 136/80
[2021-01-21 12:52] LABS: ALANINE AMINOTRANSFERASE 45 U/L (12-78); ALBUMIN 3.3 g/dL (3.4-5.0); ALKALINE PHOSPHATASE 55 U/L (46-116); ANION GAP 9 mmol/L (8-16); ASPARTATE AMINOTRANSFERASE 32 U/L (15-37); BILIRUBIN,TOTAL 0.4 mg/dL (0.1-1.0); CALCIUM, TOTAL 9.1 mg/dL (8.8-10.5); CARBON DIOXIDE 28 mmol/L (22-29); CHLORIDE 103 mmol/L (98-107); CREATININE 0.77 mg/dL (0.60-1.30); GLOMERULAR FILTR. RATE CALC > 60 mL/min (>60); GLUCOSE,RANDOM 124 mg/dL (70-110); POTASSIUM 3.7 mmol/L (3.5-5.1); SODIUM SERUM 140 mmol/L (136-145); TOTAL PROTEIN, SERUM 7.2 g/dL (6.4-8.2); UREA NITROGEN, BLOOD 10 mg/dL (7-18)
[2021-01-21 16:11] VITALS: BP 128/79
[2021-01-21] MEDS ORDERED: BACI28.42 TP (19:31)
[2021-01-21] MEDS ORDERED: ACET-2247 PO (19:32)
== END 2021-01-21 19:50 | disposition home or self-care (01) | DRG 26 ==
LOC: 6N 01-17 05:48 → 5S 01-17 08:27
PROVIDERS: ADMIT Neurological Surgery; ATTEND Neurological Surgery
PROC: 0NR00JZ Replacement of Skull with Synthetic Substitute, Open Approach (ICD-10-PCS; principal; 2021-01-17 07:30)
DX: S06.5X0A Traumatic subdural hemorrhage without loss of consciousness, initial encounter (principal); I69.351 Hemiplegia and hemiparesis following cerebral infarction affecting right dominant side; I10 Essential (primary) hypertension; G40.909 Epilepsy, unspecified, not intractable, without status epilepticus; X58.XXXA Exposure to other specified factors, initial encounter; E78.00 Pure hypercholesterolemia, unspecified; Z88.6 Allergy status to analgesic agent; Z91.013 Allergy to seafood; Z88.8 Allergy status to other drugs, medicaments and biological substances; I69.320 Aphasia following cerebral infarction; Z79.899 Other long term (current) drug therapy; Y93.89 Activity, other specified; Y92.89 Other specified places as the place of occurrence of the external cause; Y99.8 Other external cause status; Z20.822 Contact with and (suspected) exposure to COVID-19
CPT/HCPCS: 70450; 87081; 87426; 92610; 93005; 97112; 97116; 97163; 97166; 97530; 97535; A9575; J0131; J0690; J0696; J1100; J1170; J2274; J2405; J2704; J3010; J3370; J3490; J7030; J7040; J7050; J7120; 36415-L1; 36415-TC; 71045-TC; C1716

== ENCOUNTER 2020-03-03 01:15 | Inpatient (IN) | payer OTHER ==
[2020-03-03] VITALS (7 sets, daily range): BP systolic 107–161; BP diastolic 51–87
[~2020-03-03 01:15] MED LIST changes: +ACET-66 PO; -AMLO-258 PO; +AMLO10TA7 PO; +LEVE500T53 PO; +OMEP20 PO
[2020-03-03] MEDS ORDERED: CEPH125S23 PO (01:44)
[2020-03-03 02:48] LABS: BASOPHILS % (AUTO) 0.6 % (0.0-2.0); EOSINOPHILS % (AUTO) 1.4 % (1.0-6.0); HEMATOCRIT 30.2 % (41-53); HEMOGLOBIN 9.7 g/dL (13.5-17.5); LYMPHOCYTES # (AUTO) 1.3 K/uL (1.0-4.8); LYMPHOCYTES % (AUTO) 21.4 % (22.0-44.0); MEAN CORPUSCULAR HEMOGLOBIN 24.6 pg (26.0-34.0); MEAN CORPUSCULAR HGB CONC 32.1 G/dL (31.0-37.0); MEAN CORPUSCULAR VOLUME 77 fL (80-100); MONOCYTES # (AUTO) 0.5 K/uL (0.1-1.0); MONOCYTES % (AUTO) 8.5 % (2.0-9.0); NEUTROPHILS # (AUTO) 4.2 K/uL (1.8-7.7); NEUTROPHILS % (AUTO) 68.1 % (40.0-70.0); PLATELET COUNT (AUTO) 542 K/uL (150-450); RED BLOOD CELL COUNT(AUTO) 3.93 MIL/uL (4.50-5.90); RED CELL DISTRIBUTION WIDTH 16.7 % (11.5-14.5)
[2020-03-03 03:02] LABS: ANION GAP 4 mmol/L (8-16); CALCIUM, TOTAL 9.4 mg/dL (8.8-10.5); CARBON DIOXIDE 31 mmol/L (22-29); CHLORIDE 102 mmol/L (98-107); CREATININE 0.84 mg/dL (0.60-1.30); GLOMERULAR FILTR. RATE CALC > 60 mL/min (>60); GLUCOSE,RANDOM 132 mg/dL (70-110); POTASSIUM 3.9 mmol/L (3.5-5.1); SODIUM SERUM 137 mmol/L (136-145); UREA NITROGEN, BLOOD 9 mg/dL (7-18)
[2020-03-03 03:08] LABS: ALANINE AMINOTRANSFERASE 31 U/L (12-78); ALKALINE PHOSPHATASE 94 U/L (46-116); ASPARTATE AMINOTRANSFERASE 19 U/L (15-37); BILIRUBIN,TOTAL 0.2 mg/dL (0.1-1.0); C-REACTIVE PROTEIN QUANT 3.36 mg/dL (0.00-0.30); TOTAL PROTEIN, SERUM 8.6 g/dL (6.4-8.2)
[2020-03-03 03:49] LABS: ERYTHROCYTE SEDIMENTATION RATE 126 MM/HR (0-15)
[2020-03-03] MEDS ORDERED: 0.9% SODIUM CHLORIDE 10 ML SYRINGE IVP PRN (04:30)
[2020-03-03] MEDS ORDERED: ONDANSETRON HCL 4 MG/2 ML VIAL IVP PRN ×3 (04:30→07:45)
[2020-03-03] MEDS ORDERED: VANCOMYCIN HCL 1 GM/D5% WATER 200 ML IV ONE (04:30)
[2020-03-03] MEDS ORDERED: ACETAMINOPHEN 325 MG TABLET PO PRN ×2 (04:30→07:30)
[2020-03-03] MEDS ORDERED: RINGERS SOLUTION,LACTATED 1,000 ML IV ONE ×3 (06:07→09:02)
[2020-03-03] MEDS ORDERED: SODIUM CHLORIDE 0.9% 500 ML IV ONE ×2 (06:46→10:48)
[2020-03-03 06:48] LABS: PROTHROMBIN TIME 10.6 SEC (9.4-11.6)
[2020-03-03] MEDS ORDERED: VANCOMYCIN HCL 1 GM/VIAL ONE (06:57)
[2020-03-03] MEDS ORDERED: THROMBIN, BOVINE 20000 UNITS/VIAL POWDER TP ONE (06:57)
[2020-03-03] MEDS ORDERED: GELATIN SPONGE,ABSORBABLE 50 MM TP ONE (06:57)
[2020-03-03] MEDS ORDERED: BACITRACIN 50,000 UNITS/VIAL ONE ×2 (06:57→08:34)
[2020-03-03] MEDS ORDERED: LIDOCAINE 1%/EPI 1:200,000/PF 30 ML VIAL ONE (06:57)
[2020-03-03] MEDS ORDERED: BACITRACIN 28.4 GM OINTMENT TP ONE (06:57)
[2020-03-03] MEDS ORDERED: SODIUM CHLORIDE 0.9% 1,000 ML ONE ×2 (06:58→09:02)
[2020-03-03] MEDS ORDERED: SODIUM CHLORIDE 0.9% 10 ML ONE (06:58)
[2020-03-03] MEDS ORDERED: SODIUM CHLORIDE 0.9% 100 ML ONE (07:13)
[2020-03-03] MEDS ORDERED: ZOLPIDEM TARTRATE 5 MG TABLET PO PRN (07:30)
[2020-03-03] MEDS ORDERED: FentaNYL CITRATE-PF 100 MCG/2 ML VIAL IVP PRN (07:30)
[2020-03-03] MEDS ORDERED: BISACODYL 10 MG RECTAL RECTAL SUPPOSITORY PR PRN (07:30)
[2020-03-03] MEDS ORDERED: MORPHINE SULFATE 2 MG/ML SYRINGE IVP PRN (07:30)
[2020-03-03] MEDS ORDERED: MEPERIDINE-PF 25 MG/ML VIAL IVP PRN (07:30)
[2020-03-03] MEDS ORDERED: HYDROmorphone 2 MG/ML SYRINGE IVP PRN ×3 (07:30→07:45)
[2020-03-03] MEDS ORDERED: MAGNESIUM HYDROXIDE SUSPENSION 30 ML UDCUP PO PRN (07:30)
[2020-03-03] MEDS ORDERED: BENZOCAINE/MENTHOL LOZENGE PO PRN (07:45)
[2020-03-03] MEDS ORDERED: BACITRACIN 28.4 GM OINTMENT TP PRN (07:45)
[2020-03-03] MEDS ORDERED: MAG HYDROX/AL HYDROX/SIMETH 30 ML SUSP UDCUP PO PRN (07:45)
[2020-03-03] MEDS ORDERED: DEXAMETHASONE SOD PHOS 4 MG/ML VIAL IVP PRN (07:45)
[2020-03-03] MEDS ORDERED: DiphenhydrAMINE HCL 50 MG/ML VIAL IVP PRN (07:45)
[2020-03-03] MEDS ORDERED: TRANEXAMIC ACID 1,000 MG in DEXTROSE 5%-WATER 50 ML IV ONE (08:30)
[2020-03-03] MEDS ORDERED: OMEPRAZOLE 20 MG CAPSULE PO SCH (09:00)
[2020-03-03] MEDS ORDERED: DOCUSATE SODIUM 100 MG CAPSULE PO SCH (09:00)
[2020-03-03] MEDS ORDERED: SUGAMMADEX SODIUM 200 MG/2 ML VIAL IVP ONE (09:17)
[2020-03-03 09:58] LABS: BASOPHILS % (AUTO) 0.3 % (0.0-2.0); EOSINOPHILS % (AUTO) 0.7 % (1.0-6.0); HEMATOCRIT 30.8 % (41-53); HEMOGLOBIN 9.9 g/dL (13.5-17.5); LYMPHOCYTES # (AUTO) 1.6 K/uL (1.0-4.8); LYMPHOCYTES % (AUTO) 17.3 % (22.0-44.0); MEAN CORPUSCULAR HGB CONC 32.3 G/dL (31.0-37.0); MONOCYTES # (AUTO) 0.6 K/uL (0.1-1.0); MONOCYTES % (AUTO) 6.3 % (2.0-9.0); NEUTROPHILS # (AUTO) 6.9 K/uL (1.8-7.7); NEUTROPHILS % (AUTO) 75.4 % (40.0-70.0); RED BLOOD CELL COUNT(AUTO) 3.82 MIL/uL (4.50-5.90); RED CELL DISTRIBUTION WIDTH 16.8 % (11.5-14.5)
[2020-03-03 10:00] LABS: MEAN CORPUSCULAR VOLUME 80 fL (80-100); PLATELET COUNT (AUTO) 497 K/uL (150-450)
[2020-03-03 10:08] LABS: ANION GAP 2 mmol/L (8-16); CALCIUM, TOTAL 8.2 mg/dL (8.8-10.5); CARBON DIOXIDE 27 mmol/L (22-29); CHLORIDE 106 mmol/L (98-107); CREATININE 0.77 mg/dL (0.60-1.30); GLOMERULAR FILTR. RATE CALC > 60 mL/min (>60); GLUCOSE,RANDOM 148 mg/dL (70-110); POTASSIUM 4.3 mmol/L (3.5-5.1); SODIUM SERUM 135 mmol/L (136-145); UREA NITROGEN, BLOOD 8 mg/dL (7-18)
[2020-03-03 10:20] LABS: ALANINE AMINOTRANSFERASE 22 U/L (12-78); ALBUMIN 2.1 g/dL (3.4-5.0); ALKALINE PHOSPHATASE 64 U/L (46-116); ASPARTATE AMINOTRANSFERASE 21 U/L (15-37); BILIRUBIN,TOTAL 0.4 mg/dL (0.1-1.0)
[2020-03-03] MEDS: ACETAMINOPHEN 1000 MG/ISO-OSM 100 ML IV SCH ×2 (12:00→18:21)
[2020-03-03] MEDS ORDERED: ROCURONIUM BROMIDE 10 MG/ML 5 ML VIAL IVP ONE (12:00)
[2020-03-03] MEDS ORDERED: ONDANSETRON HCL 4 MG/2 ML VIAL IVP ONE (12:00)
[2020-03-03] MEDS ORDERED: LIDOCAINE/PF 2% 5 ML VIAL INJ ONE (12:00)
[2020-03-03] MEDS ORDERED: PHENYLEPHRINE HCL 10 MG/ML VIAL IVP ONE (12:00)
[2020-03-03] MEDS ORDERED: MORPHINE SULFATE/PF 0.5 MG/ML 10 ML AMP IVP ONE (12:00)
[2020-03-03] MEDS ORDERED: MIDAZOLAM HCL 2 MG/2 ML VIAL IVP ONE (12:00)
[2020-03-03] MEDS ORDERED: METOPROLOL TARTRATE 5 MG/5 ML VIAL IVP ONE (12:00)
[2020-03-03] MEDS ORDERED: FentaNYL CITRATE-PF 100 MCG/2 ML VIAL IVP ONE (12:00)
[2020-03-03] MEDS ORDERED: PROPOFOL 1% 20 ML VIAL IVP ONE (12:00)
[2020-03-03] MEDS ORDERED: MORPHINE SULFATE 4 MG/ML SYRINGE IVP ONE (12:00)
[2020-03-03] MEDS ORDERED: EPHEDrine SULFATE 50 MG/ML VIAL IVP ONE (12:00)
[2020-03-03] MEDS ORDERED: SUCCINYLCHOLINE CHLORIDE 20 MG/ML 10 ML VIAL IVP ONE (12:00)
[2020-03-03] MEDS: HYDROCODONE/ACETAMINOPHEN 5-325 MG TABLET PO PRN (13:56)
[2020-03-03] MEDS: DOCUSATE SODIUM 100 MG CAPSULE PO SCH ×2 (13:56→20:51)
[2020-03-03] MEDS: ATORVASTATIN CALCIUM 40 MG TABLET PO SCH (13:56)
[2020-03-03] MEDS: LevETIRAcetam 500 MG TABLET PO SCH ×2 (13:57→20:50)
[2020-03-03] MEDS: AmLODIPine BESYLATE 10 MG TABLET PO SCH (13:57)
[2020-03-03] MEDS: PANTOPRAZOLE SODIUM 40 MG DR TABLET PO SCH (14:00)
[2020-03-03] MEDS: CeFAZolin 1 GM/DEXTROSE 50 ML IV SCH ×2 (15:19→23:04)
[2020-03-03] MEDS: OXYGEN THERAPY IH SCH (20:00)
[2020-03-03] MEDS ORDERED: SODIUM CHLORIDE 0.9% 250 ML IV ONE (22:58)
[2020-03-04] VITALS (7 sets, daily range): BP systolic 90–145; BP diastolic 51–67
[2020-03-04 05:00] LABS: BASOPHILS % (AUTO) 0.2 % (0.0-2.0); EOSINOPHILS % (AUTO) 0 % (1.0-6.0); HEMATOCRIT 23.7 % (41-53); HEMOGLOBIN 7.8 g/dL (13.5-17.5); LYMPHOCYTES # (AUTO) 0.8 K/uL (1.0-4.8); LYMPHOCYTES % (AUTO) 11.2 % (22.0-44.0); MEAN CORPUSCULAR HEMOGLOBIN 25.9 pg (26.0-34.0); MEAN CORPUSCULAR HGB CONC 32.7 G/dL (31.0-37.0); MEAN CORPUSCULAR VOLUME 79 fL (80-100); MONOCYTES # (AUTO) 0.3 K/uL (0.1-1.0); MONOCYTES % (AUTO) 4.2 % (2.0-9.0); NEUTROPHILS # (AUTO) 5.9 K/uL (1.8-7.7); NEUTROPHILS % (AUTO) 84.4 % (40.0-70.0); PLATELET COUNT (AUTO) 344 K/uL (150-450); RED CELL DISTRIBUTION WIDTH 16.6 % (11.5-14.5)
[2020-03-04 05:22] LABS: ANION GAP 7 mmol/L (8-16); CARBON DIOXIDE 22 mmol/L (22-29); CHLORIDE 115 mmol/L (98-107); CREATININE 0.43 mg/dL (0.60-1.30); GLOMERULAR FILTR. RATE CALC > 60 mL/min (>60); GLUCOSE,RANDOM 97 mg/dL (70-110); SODIUM SERUM 144 mmol/L (136-145); UREA NITROGEN, BLOOD 9 mg/dL (7-18)
[2020-03-04 05:24] LABS: CALCIUM, TOTAL 5.8 mg/dL (8.8-10.5); POTASSIUM 2.6 mmol/L (3.5-5.1)
[2020-03-04] MEDS ORDERED: POTASSIUM CHLORIDE 10% 40 MEQ/30 ML LIQUID UDCUP PEG PRN (05:45)
[2020-03-04] MEDS: ACETAMINOPHEN 1000 MG/ISO-OSM 100 ML IV SCH ×2 (06:03)
[2020-03-04] MEDS ORDERED: SODIUM CHLORIDE 0.9% 0 ML IV ONE (06:06)
[2020-03-04] MEDS ORDERED: SODIUM CHLORIDE 0.9% 500 ML IV ONE (06:07)
[2020-03-04] MEDS: POTASSIUM CHL 10 MEQ/WATER 50 ML IV PRN ×4 (06:15→12:14)
[2020-03-04] MEDS: CALCIUM CARBONATE 500 MG CHEWABLE TABLET PEG SCH ×3 (06:22→22:13)
[2020-03-04] MEDS ORDERED: VANCOMYCIN HCL 1.5 GM in DEXTROSE 5%-WATER 250 ML IV ONE (07:00)
[2020-03-04] MEDS: HYDROCODONE/ACETAMINOPHEN 5-325 MG TABLET PO PRN ×2 (08:30→20:35)
[2020-03-04] MEDS: LevETIRAcetam 500 MG TABLET PO SCH ×2 (08:30→20:27)
[2020-03-04] MEDS: ATORVASTATIN CALCIUM 40 MG TABLET PO SCH (08:30)
[2020-03-04] MEDS: AmLODIPine BESYLATE 10 MG TABLET PO SCH (08:31)
[2020-03-04] MEDS: PANTOPRAZOLE SODIUM 40 MG DR TABLET PO SCH (08:31)
[2020-03-04] MEDS: DOCUSATE SODIUM 100 MG CAPSULE PO SCH ×2 (08:32→20:27)
[2020-03-04] MEDS: POTASSIUM CHLORIDE 10% 40 MEQ/30 ML LIQUID UDCUP PEG PRN (12:31)
[2020-03-04 12:44] LABS: PHOSPHORUS 3.6 mg/dL (2.5-4.9)
[2020-03-04] MEDS: CefTAZidime PENTAHYDRATE 2 GM in DEXTROSE 5%-WATER 50 ML IV SCH ×2 (17:00→23:00)
[2020-03-04] MEDS: VANCOMYCIN HCL 1 GM/D5% WATER 200 ML IV SCH (17:19)
[2020-03-04] MEDS: OXYGEN THERAPY IH SCH (20:00)
[2020-03-05] VITALS (7 sets, daily range): BP systolic 97–120; BP diastolic 52–76
[2020-03-05] MEDS: CALCIUM CARBONATE 500 MG CHEWABLE TABLET PEG SCH ×3 (06:07→20:18)
[2020-03-05] MEDS: CefTAZidime PENTAHYDRATE 2 GM in DEXTROSE 5%-WATER 50 ML IV SCH ×3 (06:31→22:07)
[2020-03-05] MEDS ORDERED: SODIUM CHLORIDE 0.9% 250 ML IV ONE ×2 (06:33→20:17)
[2020-03-05] MEDS: OXYGEN THERAPY IH SCH ×3 (08:00→20:18)
[2020-03-05 08:18] LABS: BASOPHILS % (AUTO) 0.5 % (0.0-2.0); EOSINOPHILS % (AUTO) 1.6 % (1.0-6.0); HEMATOCRIT 25.3 % (41-53); HEMOGLOBIN 8.2 g/dL (13.5-17.5); LYMPHOCYTES # (AUTO) 1.5 K/uL (1.0-4.8); LYMPHOCYTES % (AUTO) 28.4 % (22.0-44.0); MEAN CORPUSCULAR HEMOGLOBIN 25.8 pg (26.0-34.0); MEAN CORPUSCULAR HGB CONC 32.4 G/dL (31.0-37.0); MEAN CORPUSCULAR VOLUME 80 fL (80-100); MONOCYTES # (AUTO) 0.4 K/uL (0.1-1.0); MONOCYTES % (AUTO) 7.2 % (2.0-9.0); NEUTROPHILS # (AUTO) 3.3 K/uL (1.8-7.7); NEUTROPHILS % (AUTO) 62.3 % (40.0-70.0); PLATELET COUNT (AUTO) 376 K/uL (150-450); RED BLOOD CELL COUNT(AUTO) 3.18 MIL/uL (4.50-5.90); RED CELL DISTRIBUTION WIDTH 16.8 % (11.5-14.5)
[2020-03-05 08:47] LABS: ANION GAP 5 mmol/L (8-16); CALCIUM, TOTAL 8.5 mg/dL (8.8-10.5); CARBON DIOXIDE 33 mmol/L (22-29); CHLORIDE 102 mmol/L (98-107); CREATININE 0.83 mg/dL (0.60-1.30); GLOMERULAR FILTR. RATE CALC > 60 mL/min (>60); GLUCOSE,RANDOM 145 mg/dL (70-110); POTASSIUM 3.5 mmol/L (3.5-5.1); SODIUM SERUM 140 mmol/L (136-145); UREA NITROGEN, BLOOD 8 mg/dL (7-18); VANCOMYCIN,RANDOM 23.8 mcg/mL (25.0-50.0)
[2020-03-05] MEDS: VANCOMYCIN HCL 1 GM/D5% WATER 200 ML IV SCH ×2 (09:21)
[2020-03-05] MEDS: AmLODIPine BESYLATE 10 MG TABLET PO SCH (09:21)
[2020-03-05] MEDS: DOCUSATE SODIUM 100 MG CAPSULE PO SCH ×2 (09:21→20:19)
[2020-03-05] MEDS: PANTOPRAZOLE SODIUM 40 MG DR TABLET PO SCH (09:21)
[2020-03-05] MEDS: LevETIRAcetam 500 MG TABLET PO SCH ×2 (09:21→20:18)
[2020-03-05] MEDS: OxyCODONE HCL 5 MG IR TABLET PO PRN ×3 (11:03→20:27)
[2020-03-05 12:45] LABS: PHOSPHORUS 3.7 mg/dL (2.5-4.9)
[2020-03-05] MEDS: POTASSIUM CHLORIDE 10% 40 MEQ/30 ML LIQUID UDCUP PEG PRN (12:57)
[2020-03-05] MEDS: ATORVASTATIN CALCIUM 40 MG TABLET PEG SCH (20:18)
[2020-03-05] MEDS: VANCOMYCIN HCL 750 MG in DEXTROSE 5%-WATER 250 ML IV SCH (23:08)
[2020-03-06] VITALS (9 sets, daily range): BP systolic 96–118; BP diastolic 53–71
[2020-03-06] MEDS: OxyCODONE HCL 5 MG IR TABLET PO PRN ×3 (04:40→21:31)
[2020-03-06 05:42] LABS: BASOPHILS % (AUTO) 0.5 % (0.0-2.0); EOSINOPHILS % (AUTO) 2.2 % (1.0-6.0); HEMATOCRIT 25.4 % (41-53); HEMOGLOBIN 8.3 g/dL (13.5-17.5); LYMPHOCYTES # (AUTO) 1.7 K/uL (1.0-4.8); LYMPHOCYTES % (AUTO) 36.4 % (22.0-44.0); MEAN CORPUSCULAR HEMOGLOBIN 25.9 pg (26.0-34.0); MEAN CORPUSCULAR HGB CONC 32.6 G/dL (31.0-37.0); MEAN CORPUSCULAR VOLUME 79 fL (80-100); MONOCYTES # (AUTO) 0.4 K/uL (0.1-1.0); NEUTROPHILS # (AUTO) 2.4 K/uL (1.8-7.7); NEUTROPHILS % (AUTO) 51.9 % (40.0-70.0); PLATELET COUNT (AUTO) 357 K/uL (150-450); RED CELL DISTRIBUTION WIDTH 16.6 % (11.5-14.5)
[2020-03-06 05:51] LABS: ANION GAP 3 mmol/L (8-16); CALCIUM, TOTAL 8.8 mg/dL (8.8-10.5); CARBON DIOXIDE 33 mmol/L (22-29); CHLORIDE 103 mmol/L (98-107); CREATININE 0.73 mg/dL (0.60-1.30); GLOMERULAR FILTR. RATE CALC > 60 mL/min (>60); GLUCOSE,RANDOM 133 mg/dL (70-110); POTASSIUM 3.7 mmol/L (3.5-5.1); SODIUM SERUM 139 mmol/L (136-145); UREA NITROGEN, BLOOD 8 mg/dL (7-18)
[2020-03-06] MEDS: CefTAZidime PENTAHYDRATE 2 GM in DEXTROSE 5%-WATER 50 ML IV SCH ×3 (06:09→23:01)
[2020-03-06] MEDS: CALCIUM CARBONATE 500 MG CHEWABLE TABLET PEG SCH ×3 (06:09→21:14)
[2020-03-06] MEDS: OXYGEN THERAPY IH SCH ×2 (08:00→20:00)
[2020-03-06] MEDS: VANCOMYCIN HCL 750 MG in DEXTROSE 5%-WATER 250 ML IV SCH ×2 (08:27→15:53)
[2020-03-06] MEDS: LevETIRAcetam 500 MG TABLET PO SCH ×2 (08:27→21:14)
[2020-03-06] MEDS: PANTOPRAZOLE SODIUM 40 MG DR TABLET PO SCH (08:27)
[2020-03-06] MEDS: AmLODIPine BESYLATE 10 MG TABLET PO SCH (08:27)
[2020-03-06] MEDS: POTASSIUM CHLORIDE 10% 40 MEQ/30 ML LIQUID UDCUP PEG PRN (08:28)
[2020-03-06] MEDS: DOCUSATE SODIUM 100 MG CAPSULE PO SCH ×2 (08:28→21:13)
[2020-03-06] MEDS ORDERED: SODIUM CHLORIDE 0.9% 250 ML IV ONE (10:12)
[2020-03-06] MEDS: ATORVASTATIN CALCIUM 40 MG TABLET PEG SCH (21:14)
[2020-03-07] VITALS: BP 116/74
[2020-03-07] MEDS: VANCOMYCIN HCL 750 MG in DEXTROSE 5%-WATER 250 ML IV SCH ×3 (00:05→15:02)
[2020-03-07 04:00] VITALS: BP 118/76
[2020-03-07] MEDS: CALCIUM CARBONATE 500 MG CHEWABLE TABLET PEG SCH ×3 (06:08→23:22)
[2020-03-07 06:17] LABS: ANION GAP 4 mmol/L (8-16); CALCIUM, TOTAL 9.2 mg/dL (8.8-10.5); CARBON DIOXIDE 33 mmol/L (22-29); CHLORIDE 101 mmol/L (98-107); CREATININE 0.71 mg/dL (0.60-1.30); GLOMERULAR FILTR. RATE CALC > 60 mL/min (>60); GLUCOSE,RANDOM 108 mg/dL (70-110); POTASSIUM 3.9 mmol/L (3.5-5.1); SODIUM SERUM 138 mmol/L (136-145); UREA NITROGEN, BLOOD 8 mg/dL (7-18); VANCOMYCIN,RANDOM 18.3 mcg/mL (25.0-50.0)
[2020-03-07] MEDS: CefTAZidime PENTAHYDRATE 2 GM in DEXTROSE 5%-WATER 50 ML IV SCH ×3 (07:19→23:22)
[2020-03-07] MEDS: PANTOPRAZOLE SODIUM 40 MG DR TABLET PO SCH (07:51)
[2020-03-07] MEDS: DOCUSATE SODIUM 100 MG CAPSULE PO SCH ×2 (07:51→21:17)
[2020-03-07] MEDS: LevETIRAcetam 500 MG TABLET PO SCH ×2 (07:51→21:17)
[2020-03-07] MEDS: AmLODIPine BESYLATE 10 MG TABLET PO SCH (07:51)
[2020-03-07 08:00] VITALS: BP 127/80
[2020-03-07] MEDS ORDERED: SODIUM CHLORIDE 0.9% 250 ML IV ONE ×2 (09:17→14:49)
[2020-03-07] MEDS: OxyCODONE HCL 5 MG IR TABLET PO PRN (09:42)
[2020-03-07 12:00] VITALS: BP 112/72
[2020-03-07 14:47] VITALS: BP 118/76
[2020-03-07] MEDS: OXYGEN THERAPY IH SCH ×2 (15:01→20:00)
[2020-03-07 20:53] VITALS: BP 129/70
[2020-03-07] MEDS: ATORVASTATIN CALCIUM 40 MG TABLET PEG SCH (21:17)
[2020-03-08] MEDS: VANCOMYCIN HCL 750 MG in DEXTROSE 5%-WATER 250 ML IV SCH ×4 (00:05→23:20)
[2020-03-08 00:34] VITALS: BP 121/68
[2020-03-08] MEDS: CALCIUM CARBONATE 500 MG CHEWABLE TABLET PEG SCH ×3 (04:59→22:46)
[2020-03-08 05:00] VITALS: BP 141/68
[2020-03-08 08:00] LABS: BASOPHILS % (AUTO) 0.6 % (0.0-2.0); EOSINOPHILS % (AUTO) 3.1 % (1.0-6.0); HEMATOCRIT 27.2 % (41-53); HEMOGLOBIN 8.8 g/dL (13.5-17.5); LYMPHOCYTES # (AUTO) 1.4 K/uL (1.0-4.8); LYMPHOCYTES % (AUTO) 29.1 % (22.0-44.0); MEAN CORPUSCULAR HEMOGLOBIN 25.8 pg (26.0-34.0); MEAN CORPUSCULAR HGB CONC 32.2 G/dL (31.0-37.0); MEAN CORPUSCULAR VOLUME 80 fL (80-100); MONOCYTES # (AUTO) 0.3 K/uL (0.1-1.0); MONOCYTES % (AUTO) 5.9 % (2.0-9.0); NEUTROPHILS % (AUTO) 61.3 % (40.0-70.0); PLATELET COUNT (AUTO) 387 K/uL (150-450); RED CELL DISTRIBUTION WIDTH 16.8 % (11.5-14.5)
[2020-03-08] MEDS: OXYGEN THERAPY IH SCH ×2 (08:00→20:00)
[2020-03-08 08:11] LABS: ANION GAP 6 mmol/L (8-16); CALCIUM, TOTAL 9.1 mg/dL (8.8-10.5); CARBON DIOXIDE 30 mmol/L (22-29); CHLORIDE 100 mmol/L (98-107); CREATININE 0.71 mg/dL (0.60-1.30); GLOMERULAR FILTR. RATE CALC > 60 mL/min (>60); GLUCOSE,RANDOM 131 mg/dL (70-110); POTASSIUM 3.8 mmol/L (3.5-5.1); SODIUM SERUM 136 mmol/L (136-145); UREA NITROGEN, BLOOD 11 mg/dL (7-18)
[2020-03-08] MEDS: DOCUSATE SODIUM 100 MG CAPSULE PO SCH ×2 (08:28→20:27)
[2020-03-08] MEDS: PANTOPRAZOLE SODIUM 40 MG DR TABLET PO SCH (08:28)
[2020-03-08] MEDS: LevETIRAcetam 500 MG TABLET PO SCH ×2 (08:28→20:27)
[2020-03-08] MEDS: CefTAZidime PENTAHYDRATE 2 GM in DEXTROSE 5%-WATER 50 ML IV SCH ×3 (08:28→22:46)
[2020-03-08] MEDS: AmLODIPine BESYLATE 10 MG TABLET PO SCH (08:28)
[2020-03-08 08:41] VITALS: BP 136/72
[2020-03-08 15:52] VITALS: BP 139/74
[2020-03-08] MEDS: OxyCODONE HCL 5 MG IR TABLET PO PRN (16:02)
[2020-03-08] MEDS: ATORVASTATIN CALCIUM 40 MG TABLET PEG SCH (20:27)
[2020-03-08 20:57] VITALS: BP 129/67
[2020-03-08] MEDS: HYDROCODONE/ACETAMINOPHEN 5-325 MG TABLET PO PRN (21:35)
[2020-03-08 23:39] VITALS: BP 139/77
[2020-03-09 04:54] VITALS: BP 127/61
[2020-03-09 05:58] LABS: GLUCOMETER DEV NAME(LOC) 5S.2A; GLUCOSE,POINT OF CARE 147 MG/DL (70-110)
[2020-03-09] MEDS: CefTAZidime PENTAHYDRATE 2 GM in DEXTROSE 5%-WATER 50 ML IV SCH ×3 (06:02→23:25)
[2020-03-09] MEDS: CALCIUM CARBONATE 500 MG CHEWABLE TABLET PEG SCH ×3 (06:02→23:25)
[2020-03-09 06:27] LABS: GLUCOMETER DEV NAME(LOC) 5N.2; GLUCOSE,POINT OF CARE 143 MG/DL (70-110)
[2020-03-09 06:27] LABS: GLUCOMETER DEV NAME(LOC) 5N.2; GLUCOSE,POINT OF CARE 166 MG/DL (70-110)
[2020-03-09 08:06] LABS: CARBON DIOXIDE 31 mmol/L (22-29); CHLORIDE 100 mmol/L (98-107); POTASSIUM 3.9 mmol/L (3.5-5.1); SODIUM SERUM 135 mmol/L (136-145)
[2020-03-09 08:07] LABS: ANION GAP 4 mmol/L (8-16); CALCIUM, TOTAL 9.3 mg/dL (8.8-10.5); CREATININE 0.78 mg/dL (0.60-1.30); GLOMERULAR FILTR. RATE CALC > 60 mL/min (>60); GLUCOSE,RANDOM 149 mg/dL (70-110); UREA NITROGEN, BLOOD 13 mg/dL (7-18)
[2020-03-09] MEDS: DOCUSATE SODIUM 100 MG CAPSULE PO SCH ×2 (08:51→21:02)
[2020-03-09] MEDS: LevETIRAcetam 500 MG TABLET PO SCH ×2 (08:51→21:02)
[2020-03-09] MEDS: AmLODIPine BESYLATE 10 MG TABLET PO SCH (08:51)
[2020-03-09] MEDS: PANTOPRAZOLE SODIUM 40 MG DR TABLET PO SCH (08:51)
[2020-03-09] MEDS: VANCOMYCIN HCL 750 MG in DEXTROSE 5%-WATER 250 ML IV SCH ×2 (08:51→15:49)
[2020-03-09 08:54] VITALS: BP 140/60
[2020-03-09 10:31] LABS: GLUCOMETER DEV NAME(LOC) 5S.2A; GLUCOSE,POINT OF CARE 176 MG/DL (70-110)
[2020-03-09 11:35] VITALS: BP 116/74
[2020-03-09] MEDS: HYDROCODONE/ACETAMINOPHEN 5-325 MG TABLET PO PRN (12:09)
[2020-03-09 16:09] VITALS: BP 114/72
[2020-03-09] MEDS: OXYGEN THERAPY IH SCH (20:00)
[2020-03-09 20:55] VITALS: BP 130/66
[2020-03-09] MEDS: ATORVASTATIN CALCIUM 40 MG TABLET PEG SCH (21:01)
[2020-03-09] MEDS: OxyCODONE HCL 5 MG IR TABLET PO PRN (21:08)
[2020-03-09 23:04] LABS: GLUCOMETER DEV NAME(LOC) 5N.2; GLUCOSE,POINT OF CARE 160 MG/DL (70-110)
[2020-03-10 00:36] VITALS: BP 106/67
[2020-03-10] MEDS: VANCOMYCIN HCL 750 MG in DEXTROSE 5%-WATER 250 ML IV SCH ×3 (00:39→16:11)
[2020-03-10 01:02] LABS: GLUCOMETER DEV NAME(LOC) 5N.2; GLUCOSE,POINT OF CARE 161 MG/DL (70-110)
[2020-03-10 04:37] VITALS: BP 119/75
[2020-03-10 06:23] LABS: GLUCOMETER DEV NAME(LOC) 5N.2; GLUCOSE,POINT OF CARE 184 MG/DL (70-110)
[2020-03-10 07:22] LABS: BASOPHILS % (AUTO) 0.9 % (0.0-2.0); HEMATOCRIT 27.2 % (41-53); HEMOGLOBIN 8.8 g/dL (13.5-17.5); LYMPHOCYTES # (AUTO) 1.6 K/uL (1.0-4.8); MEAN CORPUSCULAR HEMOGLOBIN 25.7 pg (26.0-34.0); MEAN CORPUSCULAR HGB CONC 32.4 G/dL (31.0-37.0); MEAN CORPUSCULAR VOLUME 79 fL (80-100); MONOCYTES # (AUTO) 0.3 K/uL (0.1-1.0); MONOCYTES % (AUTO) 6.6 % (2.0-9.0); NEUTROPHILS # (AUTO) 2.8 K/uL (1.8-7.7); NEUTROPHILS % (AUTO) 56.5 % (40.0-70.0); PLATELET COUNT (AUTO) 388 K/uL (150-450); RED BLOOD CELL COUNT(AUTO) 3.43 MIL/uL (4.50-5.90); RED CELL DISTRIBUTION WIDTH 16.6 % (11.5-14.5)
[2020-03-10 07:35] LABS: ANION GAP 7 mmol/L (8-16); C-REACTIVE PROTEIN QUANT 0.05 mg/dL (0.00-0.30); CALCIUM, TOTAL 8.8 mg/dL (8.8-10.5); CARBON DIOXIDE 30 mmol/L (22-29); CHLORIDE 101 mmol/L (98-107); CREATININE 0.72 mg/dL (0.60-1.30); GLOMERULAR FILTR. RATE CALC > 60 mL/min (>60); GLUCOSE,RANDOM 184 mg/dL (70-110); POTASSIUM 3.7 mmol/L (3.5-5.1); SODIUM SERUM 138 mmol/L (136-145); UREA NITROGEN, BLOOD 12 mg/dL (7-18)
[2020-03-10] MEDS: OXYGEN THERAPY IH SCH ×2 (08:00→20:00)
[2020-03-10 08:59] VITALS: BP 113/62
[2020-03-10] MEDS: CefTAZidime PENTAHYDRATE 2 GM in DEXTROSE 5%-WATER 50 ML IV SCH ×3 (09:15→22:08)
[2020-03-10] MEDS: CALCIUM CARBONATE 500 MG CHEWABLE TABLET PEG SCH ×3 (09:15→22:06)
[2020-03-10] MEDS: DOCUSATE SODIUM 100 MG CAPSULE PO SCH ×2 (09:16→22:06)
[2020-03-10] MEDS: LevETIRAcetam 500 MG TABLET PO SCH ×2 (09:16→22:06)
[2020-03-10] MEDS: AmLODIPine BESYLATE 10 MG TABLET PO SCH (09:16)
[2020-03-10] MEDS: OxyCODONE HCL 5 MG IR TABLET PO PRN ×3 (09:16→22:06)
[2020-03-10] MEDS: PANTOPRAZOLE SODIUM 40 MG DR TABLET PO SCH (09:16)
[2020-03-10] MEDS ORDERED: SODIUM CHLORIDE 0.9% 250 ML IV ONE (09:28)
[2020-03-10 11:40] VITALS: BP 129/82
[2020-03-10 16:31] LABS: GLUCOMETER DEV NAME(LOC) 5N.2; GLUCOSE,POINT OF CARE 138 MG/DL (70-110)
[2020-03-10 18:31] LABS: GLUCOMETER DEV NAME(LOC) 5S.2A; GLUCOSE,POINT OF CARE 165 MG/DL (70-110)
[2020-03-10 19:34] VITALS: BP 139/77
[2020-03-10] MEDS: ATORVASTATIN CALCIUM 40 MG TABLET PEG SCH (22:06)
[2020-03-10 23:30] VITALS: BP 133/75
[2020-03-11] MEDS: VANCOMYCIN HCL 750 MG in DEXTROSE 5%-WATER 250 ML IV SCH ×3 (00:30→15:31)
[2020-03-11] MEDS ORDERED: SODIUM CHLORIDE 0.9% 500 ML IV ONE (02:08)
[2020-03-11 05:53] VITALS: BP 112/71
[2020-03-11] MEDS: CALCIUM CARBONATE 500 MG CHEWABLE TABLET PEG SCH ×3 (05:57→20:43)
[2020-03-11] MEDS: CefTAZidime PENTAHYDRATE 2 GM in DEXTROSE 5%-WATER 50 ML IV SCH ×3 (05:57→23:11)
[2020-03-11 06:40] LABS: GLUCOMETER DEV NAME(LOC) 5N.2; GLUCOSE,POINT OF CARE 121 MG/DL (70-110)
[2020-03-11 07:51] VITALS: BP 132/97
[2020-03-11] MEDS: OXYGEN THERAPY IH SCH ×2 (08:00→20:00)
[2020-03-11] MEDS: AmLODIPine BESYLATE 10 MG TABLET PO SCH (08:29)
[2020-03-11] MEDS: PANTOPRAZOLE SODIUM 40 MG DR TABLET PO SCH (08:29)
[2020-03-11] MEDS: LevETIRAcetam 500 MG TABLET PO SCH ×2 (08:30→20:43)
[2020-03-11] MEDS: OxyCODONE HCL 5 MG IR TABLET PO PRN ×2 (08:30→20:46)
[2020-03-11] MEDS: DOCUSATE SODIUM 100 MG CAPSULE PO SCH ×2 (08:30→20:43)
[2020-03-11 09:38] LABS: ANION GAP 6 mmol/L (8-16); CALCIUM, TOTAL 8.7 mg/dL (8.8-10.5); CARBON DIOXIDE 29 mmol/L (22-29); CHLORIDE 101 mmol/L (98-107); CREATININE 0.75 mg/dL (0.60-1.30); GLOMERULAR FILTR. RATE CALC > 60 mL/min (>60); GLUCOSE,RANDOM 192 mg/dL (70-110); SODIUM SERUM 136 mmol/L (136-145); UREA NITROGEN, BLOOD 10 mg/dL (7-18)
[2020-03-11 11:43] VITALS: BP 114/58
[2020-03-11 15:30] VITALS: BP 123/77
[2020-03-11] MEDS: ATORVASTATIN CALCIUM 40 MG TABLET PEG SCH (20:43)
[2020-03-11 20:55] VITALS: BP 120/78
[2020-03-11 23:36] LABS: GLUCOMETER DEV NAME(LOC) 5N.2; GLUCOSE,POINT OF CARE 136 MG/DL (70-110)
[2020-03-11 23:50] LABS: GLUCOMETER DEV NAME(LOC) 5S.2A; GLUCOSE,POINT OF CARE 139 MG/DL (70-110)
[2020-03-12] MEDS: VANCOMYCIN HCL 750 MG in DEXTROSE 5%-WATER 250 ML IV SCH ×2 (00:23→09:01)
[2020-03-12 00:36] VITALS: BP 109/61
[2020-03-12 05:42] VITALS: BP 129/72
[2020-03-12] MEDS: CefTAZidime PENTAHYDRATE 2 GM in DEXTROSE 5%-WATER 50 ML IV SCH (06:19)
[2020-03-12] MEDS: CALCIUM CARBONATE 500 MG CHEWABLE TABLET PEG SCH (06:19)
[2020-03-12 07:02] LABS: ANION GAP 7 mmol/L (8-16); CALCIUM, TOTAL 8.7 mg/dL (8.8-10.5); CARBON DIOXIDE 28 mmol/L (22-29); CHLORIDE 102 mmol/L (98-107); GLOMERULAR FILTR. RATE CALC > 60 mL/min (>60); GLUCOSE,RANDOM 169 mg/dL (70-110); SODIUM SERUM 137 mmol/L (136-145); UREA NITROGEN, BLOOD 11 mg/dL (7-18)
[2020-03-12 07:29] VITALS: BP 131/69
[2020-03-12] MEDS: OXYGEN THERAPY IH SCH (08:00)
[2020-03-12 08:50] VITALS: BP 141/62
[2020-03-12] MEDS: LevETIRAcetam 500 MG TABLET PO SCH (09:00)
[2020-03-12] MEDS: PANTOPRAZOLE SODIUM 40 MG DR TABLET PO SCH (09:00)
[2020-03-12] MEDS: DOCUSATE SODIUM 100 MG CAPSULE PO SCH (09:11)
[2020-03-12] MEDS: AmLODIPine BESYLATE 10 MG TABLET PO SCH (09:12)
[2020-03-12] MEDS ORDERED: PANTOPRAZOLE SODIUM 40 MG/VIAL IVP SCH (10:30)
[2020-03-12] MEDS ORDERED: LevETIRAcetam 500 MG in DEXTROSE 5%-WATER 100 ML IV SCH (11:00)
[2020-03-12 11:07] VITALS: BP 111/70
[2020-03-12] MEDS ORDERED: [UNRECOGNIZED DRUG - CODE] IV (13:19)
[2020-03-12] MEDS ORDERED: LEVE500T53 PO (15:15)
[2020-03-12 20:30] LABS: GLUCOMETER DEV NAME(LOC) 5N.2; GLUCOSE,POINT OF CARE 170 MG/DL (70-110)
[2020-03-15] MEDS ORDERED: CEPH-582 PO (20:46)
== END 2020-03-12 13:28 | DRG 856 ==
LOC: EMS 01:18 → ICU 08:26 → 5S 03-07 13:45
PROVIDERS: ADMIT Neurological Surgery; ATTEND Neurological Surgery
PROC: 0W910ZZ Drainage of Cranial Cavity, Open Approach (ICD-10-PCS; 2020-03-03)
PROC: 30233N1 Transfusion of Nonautologous Red Blood Cells into Peripheral Vein, Percutaneous Approach (ICD-10-PCS; 2020-03-03)
PROC: 0NP004Z Removal of Internal Fixation Device from Skull, Open Approach (ICD-10-PCS; 2020-03-03)
PROC: 00C40ZZ Extirpation of Matter from Intracranial Subdural Space, Open Approach (ICD-10-PCS; principal; 2020-03-03 07:30)
PROC: 02HV33Z Insertion of Infusion Device into Superior Vena Cava, Percutaneous Approach (ICD-10-PCS; 2020-03-05)
PROC: B548ZZA Ultrasonography of Superior Vena Cava, Guidance (ICD-10-PCS; 2020-03-05)
DX: T81.41XA Infection following a procedure, superficial incisional surgical site, initial encounter (principal); J86.9 Pyothorax without fistula; I62.00 Nontraumatic subdural hemorrhage, unspecified; T81.31XA Disruption of external operation (surgical) wound, not elsewhere classified, initial encounter; I10 Essential (primary) hypertension; K21.9 Gastro-esophageal reflux disease without esophagitis; R56.9 Unspecified convulsions; E78.00 Pure hypercholesterolemia, unspecified; Y83.8 Other surgical procedures as the cause of abnormal reaction of the patient, or of later complication, without mention of misadventure at the time of the procedure; E87.6 Hypokalemia; D63.8 Anemia in other chronic diseases classified elsewhere; R13.10 Dysphagia, unspecified; Z88.6 Allergy status to analgesic agent; Z88.8 Allergy status to other drugs, medicaments and biological substances; Z86.73 Personal history of transient ischemic attack (TIA), and cerebral infarction without residual deficits; Y92.89 Other specified places as the place of occurrence of the external cause
CPT/HCPCS: 36569; 70450; 76937; 83735; 84100; 84132; 85651; 86140; 86850; 86900; 86901; 86923; 87040; 87070; 87081; 87205; 88304; 92507; 92521; 92526; 93005; 97110; 97112; 97163; 97167; 97530; 97535; C9113; G0378; J0131; J0330; J0690; J0712; J0713; J1100; J2250; J2270; J2274; J2370; J2405; J2704; J3010; J3370; J3480; J3490; J7030; J7040; J7050; J7060; J7120; P9016